=== PATIENT | female | born 1975 | race Caucasian/White ===

== ENCOUNTER 2017-09-08 11:26 | Emergency (ER) | payer OTHER, SELFPAY ==
[2017-09-08 11:27] VITALS: BP 152/106; PULSE 93; RESP 16; TEMP 36.6; O2SAT 98; BMI 32.1
--- NOTE | 2017-09-08 11:45 | ED.VISSUMM ---
- ER Visit Summary Date of Service: 09/08/17 Chief Complaint: Headache, sinus pressure, hypertension History of Present Illness: The patient is a 42 F who states she woke yesterday with head congestion and mild sore throat. 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 Patient does complain of headache behind her eyes into the left posterior parietal region. She has not taken anything for her symptoms and states she does not like medication. She has not noted a fever. She has not had cough or shortness of breath. Physical Examination: Vital signs are significant for blood pressure 152/106, otherwise unremarkable. Patient has not nasally, congested sound to her voice. She is in no acute distress. Head and neck examination reveals TMs to have mild hazy fluid behind the tympanic membranes. There is no significant erythema. She has mild posterior pharyngeal drainage. Heart is regular rate and rhythm. Lung sounds are clear. Abdomen is soft nontender. Neuro exam is normal. Test Results: [] Emergency Department Course and Treatment: Patient was treated with Naprosyn, Benadryl, and Afrin. On repeat evaluation her headache and congestion are significantly improved. Her pressure does remain elevated at 159/95. Patient no longer has headache. I did discuss with her that her neuro exam is completely normal and no further testing is required at this time. I did ask her to check her blood pressures daily and keep a log of her symptoms as well as her blood pressures. She is to take this with her when she follows with her primary care physician. Treatment Plan: [] Disposition: Discharge Impression: 1. Viral URI 2. Hypertension, to be confirmed This note was generated with [employer] dictation software. It may contain incorrect words, spelling, and punctuation that were not noted in review of the chart prior to signing ED Disposition - Plan for ED Patient: Chief Complaint: General Illness Referrals: Jitendra Ochoa MD [Primary Care Provider] -
[2017-09-08] MEDS: Naproxen 500 MG Tablet PO (11:50)
[2017-09-08] MEDS: Oxymetazoline 0.05% 1 SPRAY SPRAY.BTL 2 SPRAY NASAL (11:50)
[2017-09-08] MEDS: DiphenhydrAMINE 25 MG Capsule 50 MG PO (11:50)
[2017-09-08 11:57] VITALS: BP 180/112; PULSE 96; RESP 16
[2017-09-08 12:41] VITALS: BP 159/95; PULSE 73; RESP 16; O2SAT 96
--- NOTE | 2017-09-08 13:01 | ED.DEP ---
ED Disposition - Plan for ED Patient: Disposition: Home or Assisted Living Chief Complaint: General Illness Instructions: ED URI Viral, ED Hypertension Poss Referrals: Jitendra Ocoha MD [Primary Care Provider] - 1 Week
[2017-09-08 13:17] VITALS: BP 158/95; PULSE 71; RESP 16; O2SAT 100
== END 2017-09-08 13:18 | disposition home or self-care (01) ==
PROVIDERS: Emergency Provider Emergency Medicine; Family Provider Family Medicine; PCP Family Medicine
DX: J06.9 Acute upper respiratory infection, unspecified (principal); R03.0 Elevated blood-pressure reading, without diagnosis of hypertension
CPT/HCPCS: 99283

== ENCOUNTER → 2017-09-09 12:51 | Outpatient (CLI) | payer OTHER, SELFPAY ==
[2017-09-09 15:35] LABS: Hematocrit 43.5 % (37-47); Hemoglobin 14.3 g/dl (12.0-15.0); Mean Corp Hgb Conc 32.9 g/gl (32-36); Mean Corpuscular Hgb 30.4 pg (27.0-32.0); Mean Corpuscular Volume 92.4 fL (81-99); Mean Platelet Vol. 11.6 fl (6.2-12.0); Platelet Count 219 K/mm3 (150-450); RBC Distribution Width CV 13.6 % (11.6-14.6); Red Blood Count 4.71 M/mm3 (4.2-5.4); White Blood Count 8.3 K/mm3 (4.4-11.0)
[2017-09-09 15:46] LABS: Scan Indicated on CBC? Y/N NO
[2017-09-09 15:49] LABS: AST(SGOT) 17 U/L (15-37); Alanine Aminotransfer ALT/SGPT 20 U/L (13-56); Albumin, Serum 3.6 g/dL (3.2-5.0); Alkaline Phosphatase 85 U/L (45-117); Anion Gap 8 (5-15); BUN 9 mg/dL (7-18); BUN/Creat Ratio 12.9 RATIO (10-20); Calcium,Total 8.6 mg/dL (8.5-10.1); Chloride 107 mmol/L (98-107); EST Glomerular Filtration Rate 99 mL/min (>60); Est Glom Filt Rate - Afr Amer 119 mL/min (>60); Globulin 3.7 g/dL (2.2-4.2); Glucose 112 mg/dL (74-106); Potassium 3.6 mmol/L (3.5-5.1); Protein, Total 7.3 g/dL (6.4-8.2); Sodium Level 141 mmol/L (136-145); Thyroid Stim Hormone (TSH) 2.03 uIU/mL (0.358-3.74)
== END ==
PROVIDERS: Family Provider Family Medicine; PCP Family Medicine; Visit Provider Family Medicine
DX: I16.0 Hypertensive urgency (principal)
CPT/HCPCS: 36415; 80053; 83735; 84443; 85027

== ENCOUNTER → 2018-06-02 10:51 | Outpatient (CLI) | payer OTHER, SELFPAY ==
[2018-02-19 09:32] VITALS: BMI 30.2
[2018-06-02 12:29] LABS: Anion Gap 11 (5-15); BUN 13 mg/dL (7-18); BUN/Creat Ratio 26.1 RATIO (10-20); Calcium,Total 9.1 mg/dL (8.5-10.1); Chloride 104 mmol/L (98-107); EST Glomerular Filtration Rate 144 mL/min (>60); Est Glom Filt Rate - Afr Amer 175 mL/min (>60); Glucose 73 mg/dL (74-106); Potassium 4.2 mmol/L (3.5-5.1); Sodium Level 141 mmol/L (136-145)
== END ==
PROVIDERS: Family Provider Family Medicine; PCP Family Medicine; Visit Provider Family Medicine
DX: I10 Essential (primary) hypertension (principal)
CPT/HCPCS: 36415; 80048

== ENCOUNTER → 2018-06-05 17:00 | Outpatient (CLI) | payer OTHER, SELFPAY ==
--- NOTE | 2018-06-05 17:03 | BI_ITS ---
MAMMOGRAPHY - BILATERAL SCREENING REASON FOR EXAM: Female, 43 years old. Routine annual screening examination. PERTINENT HISTORY: Non-contributory. TECHNIQUE: Digital bilateral breast suzette (3D mammographic acquisition) in the CC and MLO projections. 2-D mediolateral oblique (MLO) and craniocaudad (CC) views of both breasts were obtained. CAD: Full Field Digital Mammography with Computer Added Detection was performed. COMPARISON: None. Baseline examination. FINDINGS: Breast Composition: There are scattered areas of fibroglandular density. There are no dominant masses or suspicious calcifications. There is a 7.7 mm x 5.6 mm well-defined nodule in the axillary region of the left breast. A similar appearing nodule is also seen in the axillary region of the right breast. This measures 9.5 mm. These most likely represent small lymph nodes. Correlation with ultrasound is recommended. No other significant abnormalities are identified. BI/SCREENING MAMM (CAD), BILAT IMPRESSION: Subcentimeter nodular density seen in the axillary regions of both breasts. These most likely represent small lymph nodes. Correlation with ultrasound is recommended. ASSESSMENT CATEGORY: BIRADS Category 0: Incomplete. Need additional imaging evaluation. A letter regarding these results will be sent to the patient by the facility within 30 days. Approximately 10% of breast cancers are not detected by mammography. A normal mammogram should not delay biopsy of a clinically suspicious abnormality. [id number] Electronically Signed: Fady Grimes MD at 8:29 EST Tel [phone], Service support ,
--- OUTSIDE RECORDS SUMMARY | 2018-07-22 19:08 | XMS RPT_ITS ---
:1975 Author Organization OHIP Support Name Relationship Address Phone ALCIDES CYDNEY Unavailable [address] + [place] [address] [facility] Unavailable [address] + [place] [address] ALCIDES, CYDNEY Unavailable [address] + [place] [address] [facility] Unavailable [address] + [place] [address] ALCIDES, CYDNEY Unavailable [address] + [place] [address] [facility] Unavailable [address] + [place] [address] ALCIDES, CYDNEY Unavailable [address] + [place] [address] [facility] Unavailable [address] + [place] [address] ALCIDES, CYDNEY Unavailable [address] + [place] [address] [facility] Unavailable [address] + [place] [address] ALCIDES, CYDNEY Unavailable [address] + [place] [address] [facility] Unavailable [address] + [place] [address] ALCIDES, CYDNEY Unavailable [address] + [place] [address] [facility] Unavailable [address] + [place] [address] ALCIDES, CYDNEY Unavailable [address] + [place] [address] [facility] Unavailable [address] + [place] [address] ALCIDES, CYDNEY Unavailable [address] + [place] [address] [facility] Unavailable [address] + [place] [address] ALCIDES, CYDNEY Unavailable [address] + [place] [address] [facility] Unavailable [address] + [place] [address] ALCIDES, CYDNEY Unavailable [address] + [place] [address] [facility] Unavailable [address] + [place] [address] Care Team Providers Name Role Phone Osorio Ochoa Attending Unavailable [facility] Unavailable Osorio Ochoa Attending Unavailable Don, [facility] Unavailable Hi, Charly Attending Unavailable Don, Osorio Referring Unavailable [place], Charly Attending Unavailable Hi, Charly Referring Unavailable [place] Unavailable [place]arly Attending Unavailable Hi, Charly Referring Unavailable [place], [facility] Unavailable Hi, Charly Consulting Unavailable [place]arly Attending Unavailable [place], Christopher Referring Unavailable [place], [facility] Unavailable Gabrielle Bingham Attending Unavailable Don, Osorio Attending Unavailable [place], Osorio Referring Unavailable [place], [facility] Unavailable [place], [facility] Unavailable Ungur, Jacquelin Attending Unavailable ASSESSMENT, HEALTH RISK Attending Unavailable ASSESSMENT, HEALTH RISK Referring Unavailable [facility], [facility] Unavailable Don, Osorio Attending Unavailable [place], [facility] Unavailable PROBLEMS PROBLEMS DATE TYPE CONDITION / CODE ATTENDING STATUS SOURCE 07/11/2018 Unknown R92.8 - Other Charly Do Active [facility] abnormal and Community inconclusive Hospital findings on Repository diagnostic imaging of breast / R92.8(ICD-10) 09/09/2017 Unknown I16.0 - Don, Active Bob Hypertensive [facility] urgency / Hospital I16.0(ICD-10) Repository 09/09/2017 Unknown 401.9 - Don, Active Bob Unspecified [facility] hypertension / Repository 401.9(ICD-9) 06/11/2018 Unknown R51 - Headache / Bingham, Gabrielle Active [facility] R51(ICD-10) [facility] Repository PROCEDURES PROCEDURES No Procedure Records FoundRESULTS RESULTS SURGERY VISIT REPORT Observed: 07/08/2018 Status: F Source: [place] 9:25 AM [facility] [place] [facility] 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 The 2:00 lesion came back as a fibroadenomatous change with mild ductal ectasia no evidence of malignancy. The 1:00 lesion came back as a fibroadenoma. The patient stated that she had mild to moderate amount of bruising. Has no discomfort at this time. Objective Details: Biopsy sites are clean there is no signs of infection. Assessment AND Plan Problems 1. 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 At that point in another 6 months she can get back to her routine mammograms. She can follow-up with me on an as needed. 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 Signature: Date (if applicable) CC: Osorio Ochoa MD OPERATIVE REPORT Observed: 06/23/2018 Status: F Source: BOB 11:21 AM [facility] [place] [facility] Medical Records Department [address] [place] [address] Operative Report 06/23/18 1117 MR#: [id number] Acct: [id number] Name: RADHA MCGRATH Rep #: [id number] : 1975 43 From: Charly Do MD PCP: Osorio Ochoa MD Status: REG CLI Y Location: US Problem List (1) Abnormal mammogram Status: Acute Report of Operation Date of Procedure: 06/19/18 Pre-Operative Diagnosis: Abnormal mammogram to left breast Post-Operative Diagnosis: Same Surgery/Procedure Performed:: Ultrasound-guided handheld mammotome breast biopsy of left breast x2 Type of Anesthesia:: Local Specimen's removed: Left breast biopsy x2 Estimated Blood Loss (mL): < 25 cc Description of Procedure: Patient was brought into the ultrasound unit. Ultrasound of the upper outer quadrant of the left breast revealed the lesion in question. I prepped the breast with chlorhexidine. I injected 1% lidocaine plain. Under ultrasound guidance I injected local posterior to the lesion. A skin lonnie was made. Under ultrasound guidance I directed the hand-held mammotome needle posterior to the lesion under ultrasound guidance numerous biopsies were obtained. Under ultrasound guidance a titanium clip was placed. Closer to the nipple area was the second lesion which was identified with ultrasound. I prepped the breast with chlorhexidine. I injected 1% lidocaine plain. I injected local posterior to the lesion under ultrasound guidance. A skin lonnie was made. Under ultrasound guidance I directed the hand-held mammotome needle posterior to the lesion. Under ultrasound guidance numerous biopsies were obtained. Under ultrasound guidance a small titanium clip was placed. Sterile dressings were applied. The patient tolerated the procedure well. - Admit VTE Documentation VTE Present on Admission: No VTE Mechan Device Prophylaxis: None VTE Pharm Prophylaxis ordered?: No Reason prophylaxis not ordered:: Treatment Not Indicated 06/23/18 1121 <Electronically signed by Charly Do MD> Date Charly Do MD CC: Osorio Ochoa MD; Charly Do MD Signed US BREAST BX EA ADD Observed: 06/19/2018 Status: F Source: BOB [place] 3:41 PM [facility] [place] [facility] Imaging Services [address] [place] [address] US Breast Bx EA Add Lesion MR#: [id number] Acct: [id number] Name: RADHA MCGRATH Rep #: [id number] : 1975 F 43 From: Fady Grimes MD PCP: Osorio Ochoa MD Status: REG CLI Study: US Breast Bx EA Add Lesion Date of Exam: 06/19/18 Exam# [id number] Ordering Dr: Charly Do MD STUDY: ULTRASOUND GUIDED BIOPSY OF THE BREAST LEFT REASON FOR EXAM: Female, 43 years old. Hypoechoic nodule at the 2:00 position of the left breast at 30 cm from the nipple. TECHNIQUE: Under direct sonographic guidance, the surgeon performed core needle biopsies of the hypoechoic nodule at the 2:00 position breast at 10 sinus and nipple. COMPARISON: Comparison is made with prior sonogram dated June 10, 2018 and prior mammogram dated June 05, 2018. FINDINGS: Successful ultrasound-guided core biopsy of the nodule at the 2:00 position breast at the sinus of the nipple. IMPRESSION: Successful ultrasound-guided core biopsy. Electronically Signed: Fady Grimes MD at 8:30 EST Tel [phone], Service support , ULTRASOUND GUIDED CORE BIOPSY REASON FOR EXAM: Female, 43 years old. Hypoechoic solid nodule at the 1:00 position of the breast at 3 cm nipple. PERTINENT HISTORY: Non-contributory. COMPARISON: None. TECHNIQUE: (All elements of maximal sterile barrier technique followed, including US elements as applicable) Upon arrival to the breast imaging department the patient's identification was confirmed and the LEFT breast was marked according to time-out protocol. Ultrasound guided core biopsy and clip placement, to include potential risks and complications, was explained in full to the patient. Written and verbal consent were obtained prior to initiation of the procedure. The LEFT breast was prepped and draped in standard sterile fashion and local anesthesia was obtained with 1% buffered lidocaine. A small dermatotomy was then made to introduce the core biopsy needle. Under ultrasound guidance multiple core samples were obtained with a 11 gauge needle and submitted in formalin for pathology. A titanium clip was then deployed into the biopsy cavity under ultrasound guidance. Upon completion of the procedure hemostasis was obtained and sterile dressing was applied. The patient tolerated the entire procedure without immediate complication and was discharged from the breast imaging department in good condition. US/US Breast Bx EA Add Lesion IMPRESSION: Ultrasound guided core biopsy of a mass in the LEFT breast at the 1:00 position breast at 3 cm from the nipple without complication. An addendum to this report will be rendered with appropriate recommendations when the pathology report is finalized. Electronically Signed: Fady Grimes MD at 8:31 EST Tel [phone], Service support , CC: Osorio Ochoa MD; Charly Do MD Nurse Ob: Signed US BREAST BIOPSY Observed: 06/19/2018 Status: F Source: BOB 1ST [place] 3:01 PM [facility] [place] [facility] Imaging Services [address] [place] [address] US Breast Biopsy 1st Lesion MR#: [id number] Acct: [id number] Name: RADHA MCGRATH Rep #: [id number] : 1975 F 43 From: Fady Grimes MD PCP: Osorio Ochoa MD Status: REG CLI Study: US Breast Biopsy 1st Lesion Date of Exam: 06/19/18 Exam# [id number] Ordering Dr: Charly Do MD STUDY: ULTRASOUND GUIDED BIOPSY OF THE BREAST LEFT REASON FOR EXAM: Female, 43 years old. Hypoechoic nodule at the 2:00 position of the left breast at 30 cm from the nipple. TECHNIQUE: Under direct sonographic guidance, the surgeon performed core needle biopsies of the hypoechoic nodule at the 2:00 position breast at 10 sinus and nipple. COMPARISON: Comparison is made with prior sonogram dated June 10, 2018 and prior mammogram dated June 05, 2018. FINDINGS: Successful ultrasound-guided core biopsy of the nodule at the 2:00 position breast at the sinus of the nipple. IMPRESSION: Successful ultrasound-guided core biopsy. Electronically Signed: Fady Grimes MD at 8:30 EST Tel [phone], Service support , ULTRASOUND GUIDED CORE BIOPSY REASON FOR EXAM: Female, 43 years old. Hypoechoic solid nodule at the 1:00 position of the breast at 3 cm nipple. PERTINENT HISTORY: Non-contributory. COMPARISON: None. TECHNIQUE: (All elements of maximal sterile barrier technique followed, including US elements as applicable) Upon arrival to the breast imaging department the patient's identification was confirmed and the LEFT breast was marked according to time-out protocol. Ultrasound guided core biopsy and clip placement, to include potential risks and complications, was explained in full to the patient. Written and verbal consent were obtained prior to initiation of the procedure. The LEFT breast was prepped and draped in standard sterile fashion and local anesthesia was obtained with 1% buffered lidocaine. A small dermatotomy was then made to introduce the core biopsy needle. Under ultrasound guidance multiple core samples were obtained with a 11 gauge needle and submitted in formalin for pathology. A titanium clip was then deployed into the biopsy cavity under ultrasound guidance. Upon completion of the procedure hemostasis was obtained and sterile dressing was applied. The patient tolerated the entire procedure without immediate complication and was discharged from the breast imaging department in good condition. US/US Breast Biopsy 1st Lesion IMPRESSION: Ultrasound guided core biopsy of a mass in the LEFT breast at the 1:00 position breast at 3 cm from the nipple without complication. An addendum to this report will be rendered with appropriate recommendations when the pathology report is finalized. Electronically Signed: Fady Grimes MD at 8:31 EST Tel [phone], Service support , CC: Osorio Ochoa MD; Charly Do MD Nurse Ob: Signed BREAST BIOPSY Observed: 06/19/2018 Status: F Source: BOB (CHOOSE SITE) 12:00 AM [facility] [place] Patient: RADHA MCGRATH : 1975 (43/F) Acct Num: [id number] Phys: Charly Do MD Unit Num: [id number] Loc: Specimen: [id number] Received: 06/20/18 - 1428 Spec Type: BREAST BX TISSUES 1 TISSUES: A. Left breast, NOS B. Left breast, NOS GROSS DESCRIPTION A - Received in fixative is one container labeled with the patient's name and designated left breast 2 o'clock. The specimen consists of multiple irregular fragments of yellow soft tissue that in aggregate measure 2.5 x 1.2 x 0.1 cm. The specimen is totally submitted in one cassette. B - Received in fixative is one container labeled with the patient's name and designated left breast 1 o'clock. The specimen consists of multiple irregular fragments of yellow soft tissue that in aggregate measure 2 x 1.5 x 0.1 cm. The specimen is totally submitted in one cassette. / AM:rhiannon 06/20/18 TC:5 CPT: 64482 x2 HEADER OPERATION: Left breast ultrasound-guided biopsy PRE-OP DIAGNOSIS: Left breast lesions 1 o'clock 2 cm, 2 o'clock 10 cm TISSUE SUBMITTED: A - Left breast nodule 2 o'clock, 10 cm from nipple, B - Left breast nodule 1 o'clock, 3 cm from nipple ISCHEMIC TIME: 1 minute MICROSCOPIC DESCRIPTION Slides are reviewed. MICROSCOPIC DIAGNOSIS A. Left breast at 2 o'clock, ultrasound-guided core biopsy: Fibroadenomatous change and mild duct ectasia. No evidence of malignancy. B. Left breast at 1 o'clock, ultrasound-guided core biopsy: Fibroadenoma. AM:rhiannon 06/23/18 Signed Rommel Young DO 06/23/18 <signature on file> Performed By: #### PBRBX #### [facility] [address] [place], [place], [address] SURGERY VISIT REPORT Observed: 06/16/2018 Status: F Source: [place] 3:02 PM [facility] [place] [facility] 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 Is patient in pain?: No Allergies No Known Allergies Allergy (Verified 06/16/18 07:30) Medications escitalopram 10 mg tablet 10 mg PO DAILY 06/16/18 [History Confirmed 06/16/18] lisinopril 20 mg-hydrochlorothiazide 12.5 mg tablet 1 tab PO DAILY 06/16/18 [History Confirmed 06/16/18] terbinafine HCl 250 mg tablet 250 mg PO DAILY 06/16/18 [History Confirmed 06/16/18] [facility] Medical History Hypertension (Chronic) Abnormal mammogram (Acute) Surgical History Hx of section (Acute) Family History Sister Hypertension Mother Hypertension Social History Smoking Status: Never smoker second hand exposure: No alcohol intake: never substance use type: does not use caffeine: Yes frequency: does not exercise HPI HPI HPI: RADHA MCGRATH, is a 43 F who presents to the office today for evaluation of an abnormal mammogram and ultrasound completed [facility] on 06/10/2018. Patient showed hypoechoic nodule with posterior acoustic shadowing seen at the 2 o'clock position of the breast 1 cm from the nipple. In addition there was another 5 mm hypoechoic nodule seen at the 1 o'clock position approximately 1 cm from the nipple area. Biopsy was recommended for both of these lesions. She has never had a biopsy before. She has no family history of breast cancer. ROS General General: No weight change, appetite, fatigue, colon cancer, breast cancer or weakness HEENT HEENT: No difficulty swallowing, eye injury, eye surgery, swollen glands or hoarseness Endo Endocrine: No thyroid disease, diabetes mellitus, thyroid cancer, Hair loss, heat intolerance or cold intolerance Skin Skin: No rash or changing moles Breast Breast: No nipple discharge Musc Musculoskeletal: No back problems, arthritis, rheumatoid arthritis, gout or joint pain Cardio Cardiovascular: No murmur, pacemaker, heart disease, atrial fibrillation, high blood pressure, heart attack, heart stent, palpitations, shortness of breat with exertion or chest pain Psych Psychiatric: No depression, anxiety or hearing voices Resp Respiratory: No shortness of breath, No sleep apnea, No cough, No COPD, No asthma, No emphysema, No wheezing Gastro Gastrointestinal: No abdominal pain, No nausea or vomiting, No diarrhea, No constipation, No blood in stool, No acid reflux, No hemorrhoids, No ulcers, No gallbladder problem, No black,tarry stools [place] Hematologic: No blood thinners, No blood disorders, No bleeding, No anemia, No blood clots Neuro Neurologic: No system reviewed and no additional complaints, except as docu, No as per HPI, No abnormal walking, No abnormal hearing, No abnormal movements, No abnormal speech, No behavioral changes, No burning sensations, No confusion, No seizure-like activity, No unsteadiness, No dizziness, No localized weakness, No frequent falls, No headache(s), No lack of coordination, No loss of vision, No memory loss, No numbness, No other visual disturbances, No radiating pain, No restless legs, No sensory deficit, No fainting, No tingling, No tremor(s), No weakness, No other Exam HENMT Head: normal to inspection, normocephalic, atraumatic Mouth: moist mucous membranes, oropharynx normal Eyes General: appearance normal, both eyes and all related structures Sclera: sclerae normal Neck Neck: no lymphadenopathy noted, trachea midline Neck mass: No Thyroid: thyroid normal Lymphatic: no lymphadenopathy noted Chest Breast inspection: normal inspection of the breasts Breast Palpation: Yes normal palpation of the breasts, No change in skin, No breast mass, No nipple discharge Other: Normal pendulous breasts bilaterally no palpable abnormalities or ident right. I ultrasound the areas but I just could not see these lesions with my machine. And we will have to do these biopsies in radiology per Resp Other: Respiratory Exam: Deferred Cardio Heart Sounds: no murmurs Other: Cardiac Exam: Deferred GI Other: GI Exam: Deferred Other: Rectal Exam: Deferred Extrem Other: Extremity Exam: Deferred Assessment AND Plan Problems 1. Abnormal mammogram R92.8 Plan I have discussed above with the patient. I have recommended ultrasound guided needle core breast biopsy with vacuum assistance. I have described the procedure to the patient. I have discussed with the patient that sometimes the ultrasound lesion may be artifact and is user dependent and therefore prior to undergoing the procedure, the patient will have a definitive US to ensure that the lesion is truly present and is not artifact. A marker clip will be placed to identify the location. Patient has been counseled to the risks/benefits of the procedure. I have explained the risks of the surgery, including but not limited to: infection, bleeding, injury to any blood vessels/nerves, scar tissue, missing the lesion, further surgery, etc. - the patient understands and agrees to proceed. I have answered all of the patient's questions to her satisfaction and she has no further questions. Coding Level of Care Code Off vis,new,level 3 Diagnoses Abnormal mammogram R92.8 06/16/18 1502 <Electronically signed by Charly Do MD> Date Charly Do MD Cosigner Signature: Date (if applicable) CC: Osorio Ochoa MD BREAST LIMITED Observed: 06/10/2018 Status: F Source: BOB UNILATERAL 8:54 AM [facility] [place] [facility] Imaging Services [address] [place], [place] [address] [address] Breast Limited Unilateral MR#: [id number] Acct: [id number] Name: RADHA MCGRATH Rep #: [id number] : 1975 F 43 From: Fady Grimes MD PCP: Osorio Ochoa MD Status: REG CLI Study: Breast Limited Unilateral Date of Exam: 06/10/18 Exam# [id number] Ordering Dr: Jitendra Ochoa MD ADDENDUM by Fady Grimes MD on 06/23/18 at 0835 ADDENDUM The report is correct. Electronically Signed: Fady Grimes MD at 8:35 EST Tel [phone], Service support , 06/23/18 0835 Date cc: Osorio Ochoa MD * Signed ADDENDUM by Fady Grimes MD on 06/23/18 at 0835 US/Breast Limited Unilateral 06/23/18 0849 Date cc: Osorio Ochoa MD * Signed STUDY: ULTRASOUND BREAST - RIGHT REASON FOR EXAM: Female, 43 years old. Abnormal screening mammogram. TECHNIQUE: Axial and longitudinal images of the RIGHT breast were performed with a high resolution ultrasound transducer. COMPARISON: Comparison is made with prior mammogram dated June 05, 2018. FINDINGS: RIGHT Breast: There is a 5 mm x 7 mm x 4 mm hypoechoic nodule with a central echogenic hilum at the 10:00 position of the breast at 12 cm from nipple. This most likely represents a small lymph node. IMPRESSION: Findings suggestive of a subcentimeter lymph node at the 10:00 position of the breast at 12 cm from nipple. ASSESSMENT CATEGORY: BIRADS Category 2: Benign. A letter regarding these results will be sent to the patient by the facility within 30 days. Electronically Signed: Fady Grimes MD at 10:24 EST Tel [phone], Service support , STUDY: ULTRASOUND BREAST - LEFT REASON FOR EXAM: Female, 43 years old. Abnormal screening mammogram. TECHNIQUE: Axial and longitudinal images of the LEFT breast were performed with a high resolution ultrasound transducer. COMPARISON: Comparison is made with prior mammogram dated June 05, 2018. FINDINGS: LEFT Breast: Is a 5 mm x 5 mm x 4 mm well-defined hypoechoic solid nodule at the 1:00 position the breast at 1 cm from the nipple. A biopsy recommended. There is also evidence of a 9 mm x 4 mm x 3 mm complex hypoechoic echoic and anechoic nodule at the 2:00 position of the breast at 1 cm from nipple. This measures 9 mm x 4 mm x 3 mm. Focal posterior acoustical shadowing is seen. A biopsy is recommended for further evaluation. There is also evidence of an 8 mm x 6 mm x 7 mm well-defined hypoechoic nodule at the 2:00 position of breast adipose centers nipple. This most likely represents a small lymph node. US/Breast Limited Unilateral IMPRESSION: Hypoechoic/anechoic nodule with posterior acoustical shadowing seen at the 2:00 position of the breast at 1 cm from nipple. A biopsy recommended. 5 mm x 5 mm x 4 mm hypoechoic solid nodule is also seen at the 1:00 position of the breast 1 cm from nipple. A biopsy is recommended. ASSESSMENT CATEGORY: BIRADS Category 4: Suspicious - Biopsy Should Be Considered. A letter regarding these results will be sent to the patient by the facility within 30 days. Electronically Signed: Fady Grimes MD at 10:27 EST Tel [phone], Service support , CC: Osorio Ochoa MD Nurse Ob: Signed SCREENING MAMM (CAD), Observed: 06/05/2018 Status: F Source: [place] B[place] 5:03 PM [facility] [place] [facility] Imaging Services [address] [place] [address] SCREENING MAMM (CAD), BILAT MR#: [id number] Acct: [id number] Name: RADHA MCGRATH Rep #: [id number] : 1975 F 43 From: Fady Grimes MD PCP: Osorio Ochoa MD Status: REG CLI Study: SCREENING MAMM (CAD), BILAT Date of Exam: 06/05/18 Exam# [id number] Ordering Dr: Jitendra Ochoa MD MAMMOGRAPHY - BILATERAL SCREENING REASON FOR EXAM: Female, 43 years old. Routine annual screening examination. PERTINENT HISTORY: Non-contributory. TECHNIQUE: Digital bilateral breast suzette (3D mammographic acquisition) in the CC and MLO projections. 2-D mediolateral oblique (MLO) and craniocaudad (CC) views of both breasts were obtained. CAD: Full Field Digital Mammography with Computer Added Detection was performed. COMPARISON: None. Baseline examination. FINDINGS: Breast Composition: There are scattered areas of fibroglandular density. There are no dominant masses or suspicious calcifications. There is a 7.7 mm x 5.6 mm well-defined nodule in the axillary region of the left breast. A similar appearing nodule is also seen in the axillary region of the right breast. This measures 9.5 mm. These most likely represent small lymph nodes. Correlation with ultrasound is recommended. No other significant abnormalities are identified. BI/SCREENING MAMM (CAD), BILAT IMPRESSION: Subcentimeter nodular density seen in the axillary regions of both breasts. These most likely represent small lymph nodes. Correlation with ultrasound is recommended. ASSESSMENT CATEGORY: BIRADS Category 0: Incomplete. Need additional imaging evaluation. A letter regarding these results will be sent to the patient by the facility within 30 days. Approximately 10% of breast cancers are not detected by mammography. A normal mammogram should not delay biopsy of a clinically suspicious abnormality. [id number] Electronically Signed: Fady Grimes MD at 8:29 EST Tel [phone], Service support , CC: Osorio Ochoa MD Nurse Ob: Signed BASIC METABOLIC Collected: 06/02/2018 Status: F Source: [place] PROFILE (BMP) 10:52 AM [facility] [place] TYPE CODE TESTS RESULT OUT OF RANGE REFERENCE UNITS LAB L501.0100 74-106 mg/dL Low GLU 73 Result Comment: Please note revised GLUCOSE reference range effective 2017. LAB L501.1000 7-18 mg/dL Normal BUN 13 LAB L501.1100 0.55-1.02 mg/dL Low CREAT,SERUM 0.50 Result Comment: The validity of the calculated GFR AND GFRAA in patients over 70 years has not been determined. Clinical correlation is essential. LAB L501.1110 >60 mL/min Normal EST GFR 144 Result Comment: Non- GFR Calc LAB L501.1115 >60 mL/min Normal EST GFR - AA 175 Result Comment: GFR Calc LAB L501.1300 10-20 RATIO High BUN/CRE 26.1 LAB L501.2200 8.5-10.1 mg/dL CA Normal 9.1 LAB L501.5300 136-145 mmol/L NA Normal 141 LAB L501.5600 3.5-5.1 mmol/L K Normal 4.2 LAB L501.5900 98-107 mmol/L CL Normal 104 LAB L501.6100 21.0-32.0 mmol/L Normal CO2 26.0 LAB L501.6200 5-15 Normal GAP 11 Performed By: #### L500.2500 #### [facility] [address] [place], [address] URINALYSIS, EMPLOYEE Collected: 03/18/2018 Status: F Source: [place] 6:21 AM [facility] [place] TYPE CODE TESTS RESULT OUT OF RANGE REFERENCE UNITS LAB L400.3000 Yellow COLOR Normal Yellow LAB L400.3050 Clear Normal CLARITY Clear LAB L400.3200 Normal mg/dl Normal GLUCOSE, UR Normal LAB L400.3300 Negative mg/dL Normal BILIRUBIN URINE Negative LAB L400.3400 Negative mg/dl Normal KETONE UR Negative LAB L400.3465 1.002-1.030 Normal SP.GR. DIPSTX 1.020 LAB L400.3550 5.0 - 8.0 pH UR Normal 5.0 LAB L400.3600 Negative mg/dl PROT Normal DIPSTX Negative LAB L400.3700 Normal mg/dl Normal UROBILI Normal LAB L400.3750 Negative Normal NITRITE UR Negative LAB L400.3780 Negative /ul High 50 OCCULT BLOOD-UR LAB L400.3800 Negative /ul LEUK Normal ESTERASE Negative Performed By: #### L400.0100 #### [facility] [address] [place], [address] CBC, EMPLOYEE Collected: 03/18/2018 Status: F Source: [place] 6:21 AM [facility] [place] TYPE CODE TESTS RESULT OUT OF RANGE REFERENCE UNITS LAB L100.1000 4.4-11.0 K/mm3 Normal WBC 8.5 LAB L100.1200 4.2-5.4 M/mm3 Low RBC 4.08 LAB L100.1300 12.0-15.0 g/dl Normal HGB 12.5 LAB L100.1400 37-47 % Normal HCT 37.9 LAB L100.1500 81-99 fL Normal MCV 92.9 LAB L100.1600 27.0-32.0 pg Normal MCH 30.6 LAB L100.1700 32-36 g/gl Normal MCHC 33.0 LAB L100.1810 11.6-14.6 % Normal RDW CV 13.3 LAB L100.1820 35.1-43.9 fl High RDW SD 44.1 LAB L100.1900 150-450 K/mm3 Normal PLT 253 LAB L100.2000 6.2-12.0 fl Normal MPV 11.1 LAB L100.2110 47-70 % Normal NEUT% 59.6 LAB L100.2210 19-41 % Normal LY% 30.2 LAB L100.2310 0-10 % Normal MONO% 7.8 LAB L100.2410 0-5 % Normal EO% 2.1 LAB L100.2510 0-1 % Normal BASO% 0.2 LAB L100.2620 2.0-7.7 X10 3/uL Normal Absolute Neut 5.0 LAB L100.2720 0.83-4.51 X10 3/ul Normal Absolute Lymph 2.56 Performed By: #### L100.0200 #### [facility] [address] [place], [address] EMPLOYEE PROFILE Collected: 03/18/2018 Status: F Source: [place] 6:21 AM [facility] [place] TYPE CODE TESTS RESULT OUT OF RANGE REFERENCE UNITS LAB L501.0100 74-106 mg/dL Normal GLU 93 Result Comment: Please note revised GLUCOSE reference range effective 2017. LAB L501.1000 7-18 mg/dL Normal BUN 9 LAB L501.1100 0.55-1.02 mg/dL Normal CREAT,SERUM 0.59 Result Comment: The validity of the calculated GFR AND GFRAA in patients over 70 years has not been determined. Clinical correlation is essential. LAB L501.1110 >60 mL/min Normal EST GFR 118 Result Comment: Non- GFR Calc LAB L501.1115 >60 mL/min Normal EST GFR - AA 143 Result Comment: GFR Calc LAB L501.1300 10-20 RATIO Normal BUN/CRE 15.2 LAB L501.1400 2.6-6.0 mg/dL Normal URIC 5.3 Result Comment: The drugs N-Acetylcysteine and Metamizole may falsely depress this assay. LAB L501.1500 6.4-8.2 g/dL Normal T PROT 6.7 LAB L501.1800 3.2-5.0 g/dL Normal ALB 3.3 LAB L501.1950 2.2-4.2 g/dL Normal GLOB 3.4 LAB L501.2000 0.9-2.4 RATIO Normal A/G 1.0 LAB L501.2200 8.5-10.1 mg/dL Normal CA 8.7 LAB L501.2300 2.5-4.9 mg/dL Normal PHOS 3.3 LAB L501.4100 15-37 U/L Low AST 12 LAB L501.4305 45-117 U/L Normal ALK P 74 LAB L501.4405 13-56 U/L Normal ALT 16 LAB L501.4600 0.20-1.00 mg/dL Normal T BILI 0.40 LAB L501.4700 0.00-0.30 mg/dL Normal D BILI 0.11 LAB L501.4900 200 mg/dL Normal CHOL 171 Result Comment: <200 mg/dL Desirable 200-240 mg/dL Borderline >240 mg/dL High Risk LAB L501.5000 mg/dL Normal TRIG 90 Result Comment: The drugs N-Acetylcysteine and Metamizole may falsely depress this assay. Serum Triglycerides Reference Interval Normal <150 mg/dL Borderline high 150 - 199 mg/dL High 200 - 499 mg/dL Very High > or = 500 mg/dL LAB L501.5300 136-145 mmol/L Normal NA 143 LAB L501.5600 3.5-5.1 mmol/L Normal K 3.9 LAB L501.5900 98-107 mmol/L High CL 108 LAB L501.6100 21.0-32.0 mmol/L Normal CO2 28.0 LAB L501.6200 5-15 Normal 7 GAP LAB L501.6400 mg/dL Low HDL 29 Result Comment: The drugs N-Acetylcysteine and Metamizole may falsely depress this assay. Reference Range HDL <40 mg/dL Low HDL Cholesterol HDL >or= 60 mg/dL High HDL Cholesterol LAB L501.6475 Normal CHOL:HDL 5.90 LAB L501.6500 0-130 mg/dL Normal LDL 124 LAB L501.6600 5-40 mg/dL Normal VLDL 18 LAB L504.2610 84-246 U/L Normal LDH 154 Performed By: #### L500.2900 #### [facility] [address] [facility] [facility] [facility] [place], [place], [address] NICOTINE URINE DRUG Collected: 03/18/2018 Status: F Source: [place] SCREEN 6:21 AM [facility] [place] TYPE CODE TESTS RESULT OUT OF RANGE REFERENCE UNITS LAB L505.6250 TO BE Normal CONFIRMED Result Comment: CONFIRMATORY TESTING FOR ALL POSITIVE URINE DRUG SCREEN RESULTS WILL ONLY BE SENT OUT UPON PHYSICIAN ORDER. The results of Urine Drug Screen methods provide only preliminary analytical test results. A more specific alternate chemical method must be used in order to obtain a confirmed analytical result. Gas chromatography/mass spectrometery (GC/MS) is the preferred confirmatory method. Clinical consideration and professional judgement should be applied to any drug of abuse test result, particularly when preliminary positive results are used. LAB L505.6270 <200 ng/mL High COT DRG Positive SCREEN Result Comment: Cotinine is the first-stage metabolite of Nicotine. Performed By: #### L505.6240 #### [facility] [address] [place], [address] DISCHARGE INSTRUCTION Observed: 02/19/2018 Status: F Source: [place] 9:56 AM [facility] REPOSIT[facility] Medical Records Department [address] [place] [address] Discharge Instruction 02/19/18 0955 MR#: [id number] Acct: [id number] Name: RADHA MCGRATH Rep #: [id number] : 1975 42 From: Jacquelin Miguel DO PCP: Osoiro Ochoa MD Status: PRE ER ED Disposition - Plan for ED Patient: Chief Complaint: Occup Expose Instructions: ED Wound Puncture General Referrals: Jitendra Ochoa MD [Primary Care Provider] - [facility] [GROUP OF PHYSICIANS] - 3-5 Days What to do if you have Problems For any increased pain, shortness of breath, bleeding, nausea or vomiting, chest pain, or any unexpected problems, contact your Primary Care Provider. Call [facility] ([phone]) or report to the closest Emergency Room. Call 911 if necessary. 02/19/18 0956 <Electronically signed by Jacquelin Miguel DO> Date Jacquelin Miguel DO Cosignbrad Signature (If Indicated): Date CC: Osorio Ocoha MD EMERGENCY DEPARTMENT Observed: 02/19/2018 Status: F Source: [place] SUMMARY 9:55 AM [facility] [place] [facility] Medical Records Department [address] [place] [address] Emergency Department Summary 02/19/18 0952 MR#: [id number] Acct: [id number] Name: RADHA MCGRATH Rep #: [id number] : 1975 42 From: Jacquelin Miguel DO PCP: Osorio Ochoa MD Status: PRE ER - ER Visit Summary Date of Service: 02/19/18 Chief Complaint: [Puncture wound right index finger] History of Present Illness: The patient is a 42 F [presents to the emergency department with a puncture wound that occurred approximately 9:30 AM to the right index finger. 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 Patient found a metallic springlike foreign body and presents to the emergency department for evaluation. Patient states she try to squeeze the finger but could not get any blood to come out and she washed the finger and cleaned it with alcohol. Patient is up-to-date on tetanus.] Physical Examination: [HEENT-PERRLA, EOMI. Cranial nerves II through XII grossly intact. TMs clear. Mucous membranes moist. No adenopathy. Cardiovascular-regular rate and rhythm without murmur or ectopy Lungs-clear to auscultation, chest wall stable without crepitus or subcu emphysema Abdomen-normoactive bowel sounds, soft, nontender, no rebound or rigidity, no peritoneal signs. Extremities-intact 4, normal range of motion, normal pulses, atraumatic]. Right index finger-I do not appreciate any breaks in the skin or puncture wounds noted. Test Results: [None indicated] Emergency Department Course and Treatment: [At this point I do not feel any testing is indicated nor do I feel there is any type of prophylaxis indicated. Patient did bring the metallic foreign body with her and it does appear to be some sort of a flimsy spring. At this point I do not see any obvious breaks in the skin although I suppose microscopic type perforation is a possibility. Given that this was a clean rag and sitting in direct solution I feel the risk of transmission of any type of infectious disease is extremely low. Patient does not want to pursue any further testing at this time.] Treatment Plan: [Follow-up with corporate care with the next 3-5 days] Disposition: [Discharged home in stable condition] Impression: [Puncture wound right index finger] This note was generated with [employer] dictation software. It may contain incorrect words, spelling, and punctuation that were not noted in review of the chart prior to signing ED Disposition - Plan for ED Patient: Chief Complaint: Occup Expose Referrals: Jitendra Ochoa MD [Primary Care Provider] - What to do if you have Problems For any increased pain, shortness of breath, bleeding, nausea or vomiting, chest pain, or any unexpected problems, contact your Primary Care Provider. Call [facility] ([phone]) or report to the closest Emergency Room. Call 911 if necessary. 02/19/18 0955 <Electronically signed by Jacquelin Miguel DO> Date Jacquelin Miguel DO Cosigner Signature (If Indicated): Date CC: Osorio Ochoa MD CBC-COMPLETE BLOOD CNT Collected: 09/09/2017 Status: F Source: [place] NO DIFF 12:58 PM [facility] [place] Order Comment: Order Date: 09/09/17 Order Info: [id number] - CBC TYPE CODE TESTS RESULT OUT OF RANGE REFERENCE UNITS LAB L100.1000 4.4-11.0 K/mm3 Normal WBC 8.3 LAB L100.1200 4.2-5.4 M/mm3 Normal RBC 4.71 LAB L100.1300 12.0-15.0 g/dl Normal HGB 14.3 LAB L100.1400 37-47 % Normal HCT 43.5 LAB L100.1500 81-99 fL Normal MCV 92.4 LAB L100.1600 27.0-32.0 pg Normal MCH 30.4 LAB L100.1700 32-36 g/gl Normal MCHC 32.9 LAB L100.1810 11.6-14.6 % Normal RDW CV 13.6 LAB L100.1820 35.1-43.9 fl High RDW SD 45.0 LAB L100.1900 150-450 K/mm3 Normal PLT 219 LAB L100.2000 6.2-12.0 fl Normal MPV 11.6 Performed By: #### L100.0500, L500.4050, L501.5200, L501.9520 #### [facility] [address] [place], [address] COMPREHENSIVE METABOLIC Collected: 09/09/2017 Status: F Source: [place] 12:58 PM [facility] [place] Order Comment: Order Date: 09/09/17 Order Info: [id number] - CMP Order Info: [id number] - MG Order Info: 3016-3 - TSH TYPE CODE TESTS RESULT OUT OF RANGE REFERENCE UNITS LAB L501.0100 74-106 mg/dL High GLU 112 Result Comment: Fasting Glucose result from 100 to 125 mg/dL suggests IMPAIRED HOMEOSTASIS per A.D.A. criteria. Please note revised GLUCOSE reference range effective 2017. LAB L501.1000 7-18 mg/dL Normal BUN 9 LAB L501.1100 0.55-1.02 mg/dL Normal CREAT,SERUM 0.70 Result Comment: The validity of the calculated GFR AND GFRAA in patients over 70 years has not been determined. Clinical correlation is essential. LAB L501.1110 >60 mL/min Normal EST GFR 99 Result Comment: Non- GFR Calc LAB L501.1115 >60 mL/min Normal EST GFR - AA 119 Result Comment: GFR Calc LAB L501.1300 10-20 RATIO Normal BUN/CRE 12.9 LAB L501.1500 6.4-8.2 g/dL T Normal PROT 7.3 LAB L501.1800 3.2-5.0 g/dL Normal ALB 3.6 LAB L501.1950 2.2-4.2 g/dL Normal GLOB 3.7 LAB L501.2000 0.9-2.4 RATIO Normal A/G 1.0 LAB L501.2200 8.5-10.1 mg/dL CA Normal 8.6 LAB L501.4100 15-37 U/L Normal AST 17 LAB L501.4305 45-117 U/L Normal ALK P 85 LAB L501.4405 13-56 U/L Normal ALT 20 Result Comment: Please note revised ALT reference range effective 2017. LAB L501.4600 0.20-1.00 mg/dL Normal T BILI 0.50 LAB L501.5300 136-145 mmol/L Normal NA 141 LAB L501.5600 3.5-5.1 mmol/L Normal K 3.6 LAB L501.5900 98-107 mmol/L Normal CL 107 LAB L501.6100 21.0-32.0 mmol/L Normal CO2 26.0 LAB L501.6200 5-15 Normal GAP 8 Performed By: #### L100.0500, L500.4050, L501.5200, L501.9520 #### [facility] [address] [place], [address] MAGNESIUM Collected: 09/09/2017 Status: F Source: [place] 12:58 PM [facility] [place] Order Comment: Order Date: 09/09/17 Order Info: [id number] - CMP Order Info: [id number] - MG Order Info: 3016-3 - TSH TYPE CODE TESTS RESULT OUT OF RANGE REFERENCE UNITS LAB L501.5200 1.6-2.6 mg/dL Normal MG 2.0 Result Comment: Please note revised Magnesium reference range effective 2017. Performed By: #### L100.0500, L500.4050, L501.5200, L501.9520 #### [facility] [facility] [place], [address] THYROID STIM HORMONE Collected: 09/09/2017 Status: F Source: BOB (TSH) 12:58 PM [facility] [place] Order Comment: Order Date: 09/09/17 Order Info: [id number] - CMP Order Info: [id number] - MG Order Info: 3016-3 - TSH TYPE CODE TESTS RESULT OUT OF RANGE REFERENCE UNITS LAB L501.9520 0.358-3.74 uIU/mL Normal TSH 2.03 Performed By: #### L100.0500, L500.4050, L501.5200, L501.9520 #### [facility] [address] [place], [address] EMERGENCY DEPARTMENT Observed: 09/08/2017 Status: F Source: B[place] SUMMARY 4:18 PM [facility] [place] [facility] Medical Records Department [address] [place] [address] Emergency Department Summary 09/08/17 1145 MR#: [id number] Acct: [id number] Name: RADHA MCGRATH Rep #: [id number] : 1975 42 From: Gabrielle Bingham MD PCP: Osorio Ochoa MD Status: DEP ER - ER Visit Summary Date of Service: 09/08/17 Chief Complaint: Headache, sinus pressure, hypertension History of Present Illness: The patient is a 42 F who states she woke yesterday with head congestion and mild sore throat. 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 Patient does complain of headache behind her eyes into the left posterior parietal region. She has not taken anything for her symptoms and states she does not like medication. She has not noted a fever. She has not had cough or shortness of breath. Physical Examination: Vital signs are significant for blood pressure 152/106, otherwise unremarkable. Patient has not nasally, congested sound to her voice. She is in no acute distress. Head and neck examination reveals TMs to have mild hazy fluid behind the tympanic membranes. There is no significant erythema. She has mild posterior pharyngeal drainage. Heart is regular rate and rhythm. Lung sounds are clear. Abdomen is soft nontender. Neuro exam is normal. Test Results: [] Emergency Department Course and Treatment: Patient was treated with Naprosyn, Benadryl, and Afrin. On repeat evaluation her headache and congestion are significantly improved. Her pressure does remain elevated at 159/95. Patient no longer has headache. I did discuss with her that her neuro exam is completely normal and no further testing is required at this time. I did ask her to check her blood pressures daily and keep a log of her symptoms as well as her blood pressures. She is to take this with her when she follows with her primary care physician. Treatment Plan: [] Disposition: Discharge Impression: 1. Viral URI 2. Hypertension, to be confirmed This note was generated with [employer] software. It may contain incorrect words, spelling, and punctuation that were not noted in review of the chart prior to signing ED Disposition - Plan for ED Patient: Chief Complaint: General Illness Referrals: Jitendra Ochoa MD [Primary Care Provider] - What to do if you have Problems For any increased pain, shortness of breath, bleeding, nausea or vomiting, chest pain, or any unexpected problems, contact your Primary Care Provider. Call [employer] [facility] ([phone]) or report to the closest Emergency Room. Call 911 if necessary. 09/08/17 1618 <Electronically signed by Gabrielle Bingham MD> Date Gabrielle Bingham MD Cosigner Signature (If Indicated): Date CC: Osorio Ochoa MD DISCHARGE INSTRUCTION Observed: 09/08/2017 Status: F Source: BOB 1:02 PM [facility] [place] [facility] Medical Records Department [address] [place] [address] Discharge Instruction 09/08/17 1301 MR#: [id number] Acct: [id number] Name: RADHA MCGRATH Peyton Rep #: [id number] : 1975 42 From: Gabrielle Bingham MD PCP: Osorio Ochoa MD Status: REG ER ED Disposition - Plan for ED Patient: Disposition: Home or Assisted Living Chief Complaint: General Illness Instructions: ED URI Viral, ED Hypertension Poss Referrals: Jitendra Ochoa MD [Primary Care Provider] - 1 Week What to do if you have Problems For any increased pain, shortness of breath, bleeding, nausea or vomiting, chest pain, or any unexpected problems, contact your Primary Care Provider. Call [facility] ([phone]) or report to the closest Emergency Room. Call 911 if necessary. 09/08/17 1302 <Electronically signed by Gabrielle Bingham MD> Date Gabrielle Dukes Signature (If Indicated): Date CC: Osorio Ochoa MD ALLERGIES ALLERGIES DATE TYPE / CODE NAME / CODE REACTION SEVERITY SOURCE 07/08/2018 Drug No Known Unknown [facility] Allergy/4160 Allergies/F00 Hospital 73589(SNOMED [id number](RXNOR Repository CT) M) ENCOUNTERS ENCOUNTERS ADMIT/DISCHARGE ACCOUNT ADMITTING ENCOUNTER LOCATION SOURCE NUMBER CLASS 07/08/2018/ [id number] Ambulatory BMSBuilding:B [facility] 9 2 [facility] Repository 06/23/2018 [id number] Ambulatory BMSBuilding:B Bob 7 [facility] Repository 06/19/2018 [id number] Ambulatory [facility] Bob [address] [facility] ing:US Repository 06/16/2018/ [id number] Ambulatory BMSBuilding:B [facility] 8 2 [facility] Repository 06/10/2018 [id number] Ambulatory [facility] [address] [facility] ing:OPUS Repository 06/05/2018 [id number] Ambulatory [facility] [address] [facility] ing:OPBI Repository 06/02/2018 [id number] Ambulatory [facility] [address] [facility] ing:MFPLAB Repository 03/18/2018 [id number] Ambulatory [facility] Bob [address] [facility] ing:EMPH Repository 02/19/2018 [id number] Ambulatory [facility] [address] [facility] ing:ED Repository 09/09/2017 [id number] Ambulatory Bob [facility] [address] [facility] ing:MTLAB Repository 09/08/2017/ [id number] Emergency Bob Bob [address] [facility] ing:ED Repository PAYERS PAYERS ENCOUNTER GUARANTOR PAYER SUBSCRIBER SOURCE 07/08/2018 RADHA [id number] Primary Insurance:[facility] RADHA Todd RETTIGDOB: Bob E [employer] [facility] [id number] [address]Efk: [phone]) Number: Repository [phone] HP) [id number] Date:6913-11-16[address], [place] [address]SE: CHECK WEBSITE 07/08/2018 Secondary NOT GIVENUNK Bob Insurance:SELF PAY [facility] Number: Effective Repository Date:2018-06-20 06/23/2018 RADHA Todd RETTIG218 Primary NOT GIVENUNK Bob E [employer] Insurance:SELF PAY [facility] [address]Rkw: (803) Number: Effective Repository [phone] () Date:2018-06-23 06/19/2018 RADHA Todd RETTIG218 Primary Insurance:[facility] RADHA Todd RETTIGDOB: Bob E [employer] [facility] [id number] [facility] Health Center [address]Hxp: [phone]) Number: Repository [phone] () [id number] Date:0675-09-96[address], [place] [address]MZ: CHECK WEBSITE 06/19/2018 Secondary NOT GIVENUNK Bob Insurance:SELF PAY [facility] Number: Effective Repository Date:2018-06-16 06/16/2018 RADHA Todd RETTIG218 Primary Insurance:[facility] RADHA Todd RETTIGDOB: Bob E [employer] [id number] [address]Ykm: (803) Number: Repository [phone] () [id number] Date:3785-04-75[address] [address], [place] [address]FN: CHECK WEBSITE 06/16/2018 Secondary NOT GIVENUNK [facility] Insurance:SELF PAY [facility] Number: Effective Repository Date:2018-06-13 06/10/2018 REYES Primary Insurance:[facility] RADHA Todd RETTIGDOB: [facility] [id number] [id number], [place] Number: Repository [phone]: 330 [id number] [phone] () Date:1024-57-84QC [address] [address]Q, [place] [address]ZC: CHECK WEBSITE 06/10/2018 Secondary NOT GIVENUNK [facility] Insurance:SELF PAY [facility] Number: Effective Repository Date:2018-06-06 06/05/2018 REYES Primary Insurance:[facility] RADHA J RETTIGDOB: [facility] [id number] [id number], [place] Number: Repository [phone]: 330 [id number] [phone] () Date:8327-62-73BD [address] [address]LLQKTZTF, [place] [address]XB: CHECK WEBSITE 06/05/2018 Secondary NOT GIVENUNK Bob Insurance:SELF PAY [facility] Number: Effective Repository Date:2018-04-22 06/02/2018 Reyes Primary Insurance:[facility] RADHA Todd RETTIGDOB: [facility] [id number] [id number], [place] Number: Repository [id number]: 330 [id number] [phone] () Date:6641-26-97DZ [address] [address]QRSJ[place]H, [place] [address]IY: CHECK WEBSITE 06/02/2018 Secondary NOT GIVENUNK [facility] Insurance:SELF PAY [facility] Number: Effective Repository Date:2018-06-02 03/18/2018 Reyes Primary NOT GIVENUNK Bob [id number] Insurance:SELF PAY [place], [place] Number: Effective Repository [phone]: ([phone]) Date:2018-03-18 [phone] () 02/19/2018 Reyes Primary NOT GIVENUNK Bob [id number] Insurance:SELF PAY [place], [place] Number: Effective Repository [phone]: ([phone]) Date:2018-02-19 [phone] () 09/09/2017 Reyes Primary Insurance:[facility] RADHA Todd RETTIGDOB: [place] [id number] [id number], [place] Number: Repository [phone]: 330 [id number] [phone] () Date:5215-48-78WS [address] [address]RZCPLWDMS, [place] [address]CM: CHECK WEBSITE 09/09/2017 Secondary NOT GIVENUNK [facility] Insurance:SELF PAY [facility] Number: Effective Repository Date:2017-09-09 09/08/2017 RADHA Todd [id number] Primary Insurance:[facility] RADHA Todd RETTIGDOB: Bob [address] [facility] [id number] [facility] [address]Grh: ([phone]) Number: Repository [phone] HP) [id number] Date:1014-69-18SN [address] [address]YPBNXZRQV, [place] [address]UH: CHECK WEBSITE 09/08/2017 Secondary NOT GIVENUNK Bob Insurance:SELF PAY [facility] Number: Effective Repository Date:2017-09-08
== END ==
PROVIDERS: Family Provider Family Medicine; PCP Family Medicine; Visit Provider Family Medicine
DX: Z12.31 Encounter for screening mammogram for malignant neoplasm of breast (principal)
CPT/HCPCS: 77063; 77067

== ENCOUNTER → 2018-06-10 08:47 | Outpatient (CLI) | payer OTHER, SELFPAY ==
--- NOTE | 2018-06-10 08:52 | US_ITS ---
STUDY: ULTRASOUND BREAST - RIGHT REASON FOR EXAM: Female, 43 years old. Abnormal screening mammogram. TECHNIQUE: Axial and longitudinal images of the RIGHT breast were performed with a high resolution ultrasound transducer. COMPARISON: Comparison is made with prior mammogram dated June 05, 2018. FINDINGS: RIGHT Breast: There is a 5 mm x 7 mm x 4 mm hypoechoic nodule with a central echogenic hilum at the 10:00 position of the breast at 12 cm from nipple. This most likely represents a small lymph node. IMPRESSION: Findings suggestive of a subcentimeter lymph node at the 10:00 position of the breast at 12 cm from nipple. ASSESSMENT CATEGORY: BIRADS Category 2: Benign. A letter regarding these results will be sent to the patient by the facility within 30 days. Electronically Signed: Fady Grimes MD at 10:24 EST Tel [phone], Service support , STUDY: ULTRASOUND BREAST - LEFT REASON FOR EXAM: Female, 43 years old. Abnormal screening mammogram. TECHNIQUE: Axial and longitudinal images of the LEFT breast were performed with a high resolution ultrasound transducer. COMPARISON: Comparison is made with prior mammogram dated June 05, 2018. FINDINGS: LEFT Breast: Is a 5 mm x 5 mm x 4 mm well-defined hypoechoic solid nodule at the 1:00 position the breast at 1 cm from the nipple. A biopsy recommended. There is also evidence of a 9 mm x 4 mm x 3 mm complex hypoechoic echoic and anechoic nodule at the 2:00 position of the breast at 1 cm from nipple. This measures 9 mm x 4 mm x 3 mm. Focal posterior acoustical shadowing is seen. A biopsy is recommended for further evaluation. There is also evidence of an 8 mm x 6 mm x 7 mm well-defined hypoechoic nodule at the 2:00 position of breast adipose centers nipple. This most likely represents a small lymph node. US/Breast Limited Unilateral IMPRESSION: Hypoechoic/anechoic nodule with posterior acoustical shadowing seen at the 2:00 position of the breast at 1 cm from nipple. A biopsy recommended. 5 mm x 5 mm x 4 mm hypoechoic solid nodule is also seen at the 1:00 position of the breast 1 cm from nipple. A biopsy is recommended. ASSESSMENT CATEGORY: BIRADS Category 4: Suspicious - Biopsy Should Be Considered. A letter regarding these results will be sent to the patient by the facility within 30 days. Electronically Signed: Fady Grimes MD at 10:27 EST Tel [phone], Service support ,
--- OUTSIDE RECORDS SUMMARY | 2018-09-11 14:39 | XMS RPT_ITS ---
:1975 Author Organization OHIP Support Name Relationship Address Phone ALCIDES CYDNEY Unavailable [address] + [place] [address] [facility] Unavailable [address] + [place] [address] ALCIDES, CYDNEY Unavailable [address] + [place] [address] [facility] Unavailable [address] + [place] [address] ALCIDES, CYDNEY Unavailable [address] + [place] [address] [facility] Unavailable [address] + [place] [address] ALCIDES, CYDNEY Unavailable [address] + [place] [address] [facility] Unavailable [address] + [place] [address] ALCIDES, CYDNEY Unavailable [address] + [place] [address] [facility] Unavailable [address] + [place] [address] ALCIDES, CYDNEY Unavailable [address] + [place] [address] [facility] Unavailable [address] + [place] [address] ALCIDES, CYDNEY Unavailable [address] + [place] [address] [facility] Unavailable [address] + [place] [address] ALCIDES, CYDNEY Unavailable [address] + [place] [address] [facility] Unavailable [address] + [place] [address] ALCIDES, CYDNEY Unavailable [address] + [place] [address] [facility] Unavailable [address] + [place] [address] ALCIDES, CYDNEY Unavailable [address] + [place] [address] [facility] Unavailable [address] + [place] [address] ALCIDES, CYDNEY Unavailable [address] + [place] [address] [facility] Unavailable [address] + [place] [address] Care Team Providers Name Role Phone Osorio Ochoa Attending Unavailable Don, [facility] [place] Primary Care Unavailable Osorio Ochoa Attending Unavailable Don, [place] [facility] Unavailable Hi, Charly Attending Unavailable Don, Osorio Referring Unavailable Green, Charly Attending Unavailable Hi, Charly Referring Unavailable Ranney, [facility] [place] Primary Care Unavailable GreenCharly Attending Unavailable Hi, Charly Referring Unavailable Ran[place], [place] Primary Care Unavailable Hi, Charly Consulting Unavailable GreenCharly Attending Unavailable Ranney, Christopher Referring Unavailable Ranney, [facility] [place] Primary Care Unavailable Gabrielle Bingham Attending Unavailable Don, Osorio Attending Unavailable Ranney, Osorio Referring Unavailable Ran[place], [place] Primary Care Unavailable [place], [place] [facility] Unavailable Ungur, Jacquelin Attending Unavailable ASSESSMENT, HEALTH RISK Attending Unavailable ASSESSMENT, HEALTH RISK Referring Unavailable [facility], [place] Primary Care Unavailable Don, Osorio Attending Unavailable [place], [place] [facility] Unavailable PROBLEMS PROBLEMS DATE TYPE CONDITION / CODE ATTENDING STATUS SOURCE 07/11/2018 Unknown R92.8 - Other Charly Do Active Bob abnormal and Community inconclusive Hospital findings on Repository diagnostic imaging of breast / R92.8(ICD-10) 09/09/2017 Unknown I16.0 - Don, Active Bob Hypertensive [facility] urgency / Hospital I16.0(ICD-10) Repository 09/09/2017 Unknown 401.9 - Don, Active Bob Unspecified [facility] Hospital hypertension / Repository 401.9(ICD-9) 06/11/2018 Unknown R51 - Headache / Bingham, Gabrielle Active [place] R51(ICD-10) [facility] Repository PROCEDURES PROCEDURES No Procedure Records FoundRESULTS RESULTS SURGERY VISIT REPORT Observed: 07/08/2018 Status: F Source: BOB 9:25 AM [facility] REPOSITORY [facility] [address] [place] [address] OFFICE VISIT Date of Service: 07/08/18 MR#: [id number] Acct: [id number] Name: RADHA MCGRATH Rep #: [id number] : 1975 Provider: Charly Do MD Age/Sex: 43/F Location: [facility] Status: Signed Intake Intake Visit Reasons: 2 WK F/U Breast BX 06/19 Senior It Specialist Required: No Is patient in pain?: No [...] <Electronically signed by Charly Do MD> Date Charyl Do MD [facility] Signature: Date (if applicable) CC: Osorio Ochoa MD OPERATIVE REPORT Observed: 06/23/2018 Status: F Source: BOB 11:21 AM [facility] REPOSITORY [facility] Medical Records Department [address] [place] [address] Operative Report 06/23/18 1117 MR#: [id number] Acct: [id number] Name: RADHA MCGRATH Rep #: [id number] : 1975 43 From: Charly Do MD [...] Status: F Source: BOB LESION 3:41 PM [facility] REPOSITORY [facility] Imaging Services [address] [place] [address] US Breast Bx EA Add Lesion MR#: [id number] Acct: [id number] Name: RADHA MCGRATH Rep #: [id number] : 1975 F 43 From: Fady Grimes MD PCP: Osorio Ochoa MD Status: REG CLI Study: US Breast Bx EA Add Lesion Date of Exam: 06/19/18 Exam# [id number] Ordering Dr: Charly Do MD STUDY: ULTRASOUND [...] Fady Grimes MD at 8:30 EST Tel [phone], Service support , ULTRASOUND GUIDED CORE BIOPSY [...] Fady Grimes MD at 8:31 EST Tel [phone], Service support , CC: Osorio Ochoa MD; Charly Do MD Filling Hauler: Signed US BREAST BIOPSY Observed: 06/19/2018 Status: F Source: BOB 1ST LESION 3:01 PM [facility] REPOSITORY [facility] Imaging Services [address] [place] [address] US Breast Biopsy 1st Lesion MR#: [id number] Acct: [id number] Name: RADHA MCGRATH Rep #: [id number] : 1975 F 43 From: Fady Grimes MD PCP: Osorio Ochoa MD Status: REG CLI Study: US Breast Biopsy 1st Lesion Date of Exam: 06/19/18 Exam# [id number] Ordering Dr: Charly Do MD STUDY: ULTRASOUND [...] Fady Grimes MD at 8:30 EST Tel [phone], Service support , ULTRASOUND GUIDED CORE BIOPSY [...] Fady Grimes MD at 8:31 EST Tel [phone], Service support , CC: Osorio Ochoa MD; Charyl Do MD Filling Hauler: Signed BREAST BIOPSY Observed: 06/19/2018 Status: F Source: BOB (CHOOSE SITE) 12:00 AM [facility] REPOSITORY Patient: RADHA MCGRATH : 1975 (43/F) Acct Num: [id number] Phys: Charly Do MD Unit Num: [id number] Loc: Specimen: [id number] Received: 06/20/18 - 1428 Spec Type: BREAST [...] one cassette. / AM:rhiannon 06/20/18 TC:5 CPT: 42506 x2 HEADER OPERATION: Left breast ultrasound-guided biopsy [...] on file> Performed By: #### PBRBX #### [facility] [address] [place], [place], [address] SURGERY VISIT REPORT Observed: 06/16/2018 Status: F Source: RIVERT[place] 3:02 PM [facility] REPOSITORY [facility] [address] [place] [address] OFFICE VISIT Date of Service: 06/16/18 MR#: [id number] Acct: [id number] Name: RADHA MCGRATH Rep #: [id number] : 1975 Provider: Charly Do MD Age/Sex: 43/F Location: [facility] Status: Signed Intake Vital Signs06/16/18 Height 4 ft 11 in 06/16/18 Weight: 150 lb Intake Visit Reasons: R Breast Birads 2 U/S AND Mammo 06/10 Senior It Specialist Required: No Is patient in pain?: No Allergies No Known Allergies Allergy (Verified 06/16/18 07:30) Medications escitalopram 10 mg tablet 10 mg PO DAILY 06/16/18 [History Confirmed 06/16/18] lisinopril 20 mg-hydrochlorothiazide 12.5 mg tablet 1 tab PO DAILY 06/16/18 [History Confirmed 06/16/18] terbinafine HCl 250 mg tablet 250 mg PO DAILY 06/16/18 [History Confirmed 06/16/18] [facility] Medical History Hypertension (Chronic) Abnormal mammogram (Acute) [...] of an abnormal mammogram and ultrasound completed [facility] on 06/10/2018. Patient showed hypoechoic nodule with [...] Status: F Source: BOB UNILATERAL 8:54 AM [facility] REPOSITORY [facility] Imaging Services [address] [place], [place] [address] [address] Breast Limited Unilateral MR#: [id number] Acct: [id number] Name: RADHA MCGRATH Rep #: [id number] : 1975 F 43 From: Fady Grimes MD PCP: Osorio Ochoa MD Status: REG CLI Study: Breast Limited Unilateral Date of Exam: 06/10/18 Exam# [id number] Ordering Dr: Jitendra Ochoa MD ADDENDUM by Fady Grimes MD on 06/23/18 at 0835 ADDENDUM The report is correct. Electronically Signed: Fady Grimes MD at 8:35 EST Tel [phone], Service support , 06/23/18 0835 Date cc: [...] Fady Grimes MD at 10:24 EST Tel [phone], Service support , STUDY: ULTRASOUND BREAST - [...] Fady Grimes MD at 10:27 EST Tel [phone], Service support , CC: Osorio Ochoa MD Filling Hauler: Signed SCREENING MAMM (CAD), Observed: 06/05/2018 Status: F Source: BOB BILAT 5:03 PM [facility] REPOSITORY [facility] Imaging Services [address] [place] [address] SCREENING MAMM (CAD), BILAT MR#: [id number] Acct: [id number] Name: RADHA MCGRATH Rep #: [id number] : 1975 F 43 From: Fady Grimes MD PCP: Osorio Ochoa MD Status: REG CLI Study: SCREENING MAMM (CAD), BILAT Date of Exam: 06/05/18 Exam# [id number] Ordering Dr: Jitendra Ochoa MD MAMMOGRAPHY - [...] delay biopsy of a clinically suspicious abnormality. [id number] Electronically Signed: Fady Grimes MD at 8:29 EST Tel [phone], Service support , CC: Osorio Ochoa MD Filling Hauler: Signed BASIC METABOLIC Collected: 06/02/2018 Status: F Source: BOB PROFILE (BMP) 10:52 AM [facility] REPOSITORY TYPE CODE TESTS RESULT OUT OF [...] GAP 11 Performed By: #### L500.2500 #### [facility] [address] [place], [address] URINALYSIS, EMPLOYEE Collected: 03/18/2018 Status: F Source: BOB 6:21 AM [facility] REPOSITORY TYPE CODE TESTS RESULT OUT OF [...] ESTERASE Negative Performed By: #### L400.0100 #### [facility] [address] [place], [address] CBC, EMPLOYEE Collected: 03/18/2018 Status: F Source: [place] 6:21 AM [facility] REPOSITORY TYPE CODE TESTS RESULT OUT OF [...] Lymph 2.56 Performed By: #### L100.0200 #### [facility] [address] [place], [address] EMPLOYEE PROFILE Collected: 03/18/2018 Status: F Source: BOB 6:21 AM [facility] REPOSITORY TYPE CODE TESTS RESULT OUT OF [...] LDH 154 Performed By: #### L500.2900 #### [facility] [address] [facility] [place], [place], [address] NICOTINE URINE DRUG Collected: 03/18/2018 Status: F Source: BOB SCREEN 6:21 AM [facility] REPOSITORY TYPE CODE TESTS RESULT OUT OF [...] of Nicotine. Performed By: #### L505.6240 #### [facility] [address] [facility] [place], [address] DISCHARGE INSTRUCTION Observed: 02/19/2018 Status: F Source: [place] 9:56 AM [facility] REPOSITORY [facility] Medical Records Department [address] [place] [address] Discharge Instruction 02/19/18 0955 MR#: [id number] Acct: [id number] Name: RADHA MCGRATH Rep #: [id number] : 1975 42 From: Jacquelin Miguel DO PCP: Osorio Ochoa MD Status: PRE ER ED Disposition [...] your Primary Care Provider. Call [facility] ([phone]) or report to the closest Emergency Room. Call 911 if necessary. 02/19/18 0956 <Electronically signed by Jacquelin Miguel DO> Date Jacquelin Miguel DO Cosignbrad Signature (If Indicated): Date CC: Osorio Ochoa MD EMERGENCY DEPARTMENT Observed: 02/19/2018 Status: F Source: BOB SUMMARY 9:55 AM [facility] REPOSITORY [facility] Medical Records Department [address] [place] [address] Emergency Department Summary 02/19/18 0952 MR#: [id number] Acct: [id number] Name: RADHA MCGRATH Rep #: [id number] : 1975 42 From: Jacquelin Miguel DO PCP: Osorio Ochoa MD Status: PRE ER - ER Visit Summary Date of Service: 02/19/18 Chief Complaint: [Puncture wound right index finger] History of Present Illness: The patient is a 42 F [presents to the emergency department with a puncture wound that occurred approximately 9:30 AM to the right index finger. 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 It may contain incorrect words, [...] your Primary Care Provider. Call [facility] ([phone]) or report to the closest Emergency Room. Call 911 if necessary. 02/19/18 0955 <Electronically signed by Jacquelin Miguel DO> Date Jacquelin Miguel DO Cosigner Signature (If Indicated): Date CC: Osorio Ochoa MD CBC-COMPLETE BLOOD CNT Collected: 09/09/2017 Status: F Source: BOB NO DIFF 12:58 PM [facility] REPOSITORY Order Comment: Order Date: 09/09/17 Order Info: 11416-7 - CBC TYPE CODE TESTS RESULT OUT [...] By: #### L100.0500, L500.4050, L501.5200, L501.9520 #### [facility] [address] [place], [address] COMPREHENSIVE METABOLIC Collected: 09/09/2017 Status: F Source: [place]OB [place] 12:58 PM [facility] REPOSITORY Order Comment: Order Date: 09/09/17 Order Info: 0786-1 - CMP Order Info: 09403-2 - MG Order Info: 3016-3 - TSH [...] By: #### L100.0500, L500.4050, L501.5200, L501.9520 #### [facility] [address] [place], [address] MAGNESIUM Collected: 09/09/2017 Status: F Source: BOB 12:58 PM [facility] REPOSITORY Order Comment: Order Date: 09/09/17 Order Info: 0786-1 - CMP Order Info: 03331-8 - MG Order Info: 3016-3 - TSH TYPE CODE TESTS RESULT OUT OF RANGE REFERENCE UNITS LAB L501.5200 1.6-2.6 mg/dL Normal MG 2.0 Result Comment: Please note revised Magnesium reference range effective 2017. Performed By: #### L100.0500, L500.4050, L501.5200, L501.9520 #### [facility] [facility] [place], [address] THYROID STIM HORMONE Collected: 09/09/2017 Status: F Source: BOB (TSH) 12:58 PM [facility] REPOSITORY Order Comment: Order Date: 09/09/17 Order Info: 0786-1 - CMP Order Info: 01406-5 - MG Order Info: 3016-3 - TSH TYPE CODE TESTS RESULT OUT OF RANGE REFERENCE UNITS LAB L501.9520 0.358-3.74 uIU/mL Normal TSH 2.03 Performed By: #### L100.0500, L500.4050, L501.5200, L501.9520 #### [facility] [address] [place], [address] EMERGENCY DEPARTMENT Observed: 09/08/2017 Status: F Source: BOB SUMMARY 4:18 PM [facility] REPOSITORY [facility] Medical Records Department [address] [place] [address] Emergency Department Summary 09/08/17 1145 MR#: [id number] Acct: [id number] Name: RADHA MCGRATH Rep #: [id number] : 1975 42 From: Gabrielle Bingham MD [...] be confirmed This note was generated with LikeAndyation software. It may contain incorrect words, spelling, [...] problems, contact your Primary Care Provider. Call [facility] ([phone]) or report to the closest Emergency Room. Call 911 if necessary. 09/08/17 1618 <Electronically signed by Gabrielle Bingham MD> Date Gabrielle Bingham MD Cosigner Signature (If Indicated): Date CC: Osorio Ochoa MD DISCHARGE INSTRUCTION Observed: 09/08/2017 Status: F Source: BOB 1:02 PM [facility] REPOSITORY [facility] Medical Records Department [address] [place] [address] Discharge Instruction 09/08/17 1301 MR#: [id number] Acct: [id number] Name: RADHA MCGRATH [place] Rep #: [id number] : 1975 42 From: Gabrielle Bingham MD [...] your Primary Care Provider. Call [facility] ([phone]) or report to the closest Emergency Room. Call 911 if necessary. 09/08/17 1302 <Electronically signed by Gabrielle Bingham MD> Date Gabrielle Dukes Signature (If Indicated): Date CC: Osorio Ochoa MD ALLERGIES ALLERGIES DATE TYPE / CODE NAME / CODE REACTION SEVERITY SOURCE 07/08/2018 Drug No Known Unknown [place] [facility] Allergy/4160 Allergies/F00 Hospital 30638(SNOMED 9654859(RXNOR Repository CT) M) ENCOUNTERS ENCOUNTERS ADMIT/DISCHARGE ACCOUNT ADMITTING ENCOUNTER LOCATION SOURCE NUMBER CLASS 07/08/2018/ [id number] Ambulatory BMSBuilding:B [place] 9 2 [facility] Repository 06/23/2018 [id number] Ambulatory BMSBuilding:B Bob 7 MS.[facility] Repository 06/19/2018 [id number] Ambulatory [place] Bob 7 [facility] ing:US Repository 06/16/2018/ [id number] Ambulatory BMSBuilding:B [place] 8 2 [facility] Repository 06/10/2018 [id number] Ambulatory Bob [place] 4 [facility] ing:OPUS Repository 06/05/2018 [id number] Ambulatory Bob [place] 7 [facility] Hospital ing:OPBI Repository 06/02/2018 [id number] Ambulatory [place] 6 [facility] Hospital ing:MFPLAB Repository 03/18/2018 [id number] Ambulatory [place] Bob 6 [facility] Hospital ing:EMPH Repository 02/19/2018 [id number] Ambulatory Bob [place] 2 [facility] Hospital ing:ED Repository 09/09/2017 [id number] Ambulatory Bob [place] 5 [facility] ing:MTLAB Repository 09/08/2017/ [id number] Emergency Bob Bob 8 8 [facility] Hospital ing:ED Repository PAYERS PAYERS ENCOUNTER GUARANTOR PAYER SUBSCRIBER SOURCE 07/08/2018 RADHA [id number] Primary Insurance:[facility] RADHA Todd RETTIGDOB: Bob E [address] [facility] [id number] [address]Giy: (803) Number: Repository [phone] HP) [id number] Date:5488-55-32CT [address], [place] [address]AP: CHECK WEBSITE 07/08/2018 Secondary NOT GIVENUNK Bob Insurance:SELF PAY [facility] Number: Effective Repository Date:2018-06-20 06/23/2018 RADHA Todd [id number] Primary NOT GIVENUNK [place] E [address] Insurance:SELF PAY [facility] [address]Orr: (803) Number: Effective Repository [phone] () Date:2018-06-23 06/19/2018 RADHA Todd [id number] Primary Insurance:[facility] RADHA Todd RETTIGDOB: Bob E [address] [facility] [id number] Hospital [address]Neo: (803) Number: Repository [phone] () [id number] Date:6799-45-84GX [address] [address], [place] [address]HH: CHECK WEBSITE 06/19/2018 Secondary NOT GIVENUNK Bob Insurance:SELF PAY [facility] Number: Effective Repository Date:2018-06-16 06/16/2018 RADHA Todd [id number] Primary Insurance:[facility] RADHA Todd RETTIGDOB: Bob E [address] [facility] [id number] Hospital [address]Sqf: (803) Number: Repository [phone] () [id number] Date:3914-28-60[address] [address], [place] [address]XL: CHECK WEBSITE 06/16/2018 Secondary NOT GIVENUNK [place] Insurance:SELF PAY [facility] Number: Effective Repository Date:2018-06-13 06/10/2018 REYES Primary Insurance:[facility] RADHA Todd RETTIGDOB: [place] [id number] [facility] [id number] Number: Repository [phone]: 330 [id number] [phone] () Date:5799-27-50LI [address] [address], [place] [address]TI: CHECK WEBSITE 06/10/2018 Secondary NOT GIVENUNK [place] Insurance:SELF PAY [facility] Number: Effective Repository Date:2018-06-06 06/05/2018 REYES Primary Insurance:[facility] RADHA J RETTIGDOB: [place] [id number] [facility] [id number] Number: Repository [phone]: 330 [id number] [phone] () Date:3082-54-29[address] [address], [place] [address]DR: CHECK WEBSITE 06/05/2018 Secondary NOT GIVENUNK Bob Insurance:SELF PAY [facility] Number: Effective Repository Date:2018-04-22 06/02/2018 Reyes Primary Insurance:[facility] RADHA Todd RETTIGDOB: [place] [id number] [facility] [id number] Number: Repository [id number]: 330 [id number] [phone] () Date:1867-36-82NA [address] [address], [place] [address]ND: CHECK WEBSITE 06/02/2018 Secondary NOT GIVENUNK [place] Insurance:SELF PAY [facility] Number: Effective Repository Date:2018-06-02 03/18/2018 Reyes Primary NOT GIVENUNK Bob [id number] Insurance:SELF PAY [place] Number: Effective Repository [id number]: (330) Date:2018-03-18 [phone] () 02/19/2018 Reyes Primary NOT GIVENUNK Bob [id number] Insurance:SELF PAY [place] Number: Effective Repository [id number]: (330) Date:2018-02-19 [phone] () 09/09/2017 Reyes Primary Insurance:[facility] RADHA Todd RETTIGDOB: Bob [id number] [facility] [id number], [place] Number: Repository [phone]: 330 [id number] [phone] () Date:7222-53-22NA [address] [address], [place] [address]WN: CHECK WEBSITE 09/09/2017 Secondary NOT GIVENUNK [place] Insurance:SELF PAY [facility] Number: Effective Repository Date:2017-09-09 09/08/2017 RADHA Todd [id number] Primary Insurance:[facility] RADHA Todd RETTIGDOB: Bob E [address] [facility] [id number] [facility] [address]Ucq: (803) Number: Repository [phone] HP) [id number] Date:5873-91-11ST [address] [address]FK[place]MP[place]JK, [place] [address]ML: CHECK WEBSITE 09/08/2017 Secondary NOT GIVENUNK Bob Insurance:SELF PAY [facility] Number: Effective Repository Date:2017-09-08
[2019-08-13 13:41] VITALS: BMI 33.3
== END ==
PROVIDERS: Family Provider Family Medicine; PCP Family Medicine; Visit Provider Family Medicine
DX: R92.8 Other abnormal and inconclusive findings on diagnostic imaging of breast (principal)
CPT/HCPCS: 76642

== ENCOUNTER → 2018-06-19 14:59 | Outpatient (CLI) | payer OTHER, SELFPAY ==
[2018-06-16 07:28] VITALS: BMI 30.2
--- NOTE | 2018-06-19 | BRBX_PTH ---
PATIENT: RADHA MCGRATH LOC: [facility]#:[id number] AGE/SX: 50/F ROOM: RE06/19/[address]: Dr. Charly Do MD : [id number] BED: DIS: SPEC #: [id number] RECD: 06/20/18 14:28 STATUS: MARGARETH NIKITA #: [id number] ZBIGNIEW: 06/19/18 00:[address]: Charly Do DEPT: SURGICAL PATHOLOGY RECD BY: Jt Alvarado ENTERED: 06/20/18 14:29 SP TYPE: BREAST BX OTHR DR: Dr. Osorio Ochoa MD Tissues: A - Left breast, NOS B - Left breast, NOS Procedures: Surgery Specimen Level IV HEADER OPERATION: Left breast ultrasound-guided biopsy PRE-OP DIAGNOSIS: Left breast lesions 1 o'clock 2 cm, 2 o'clock 10 cm TISSUE SUBMITTED: A - Left breast nodule 2 o'clock, 10 cm from nipple, B - Left breast nodule 1 o'clock, 3 cm from nipple ISCHEMIC TIME: 1 minute MICROSCOPIC DIAGNOSIS A. Left breast at 2 o'clock, ultrasound-guided core biopsy: Fibroadenomatous change and mild duct ectasia. No evidence of malignancy. B. Left breast at 1 o'clock, ultrasound-guided core biopsy: Fibroadenoma. AM:rhiannon 06/23/18 MICROSCOPIC DESCRIPTION Slides are reviewed. GROSS DESCRIPTION A - Received in fixative is one container labeled with the patient's name and designated left breast 2 o'clock. The specimen consists of multiple irregular fragments of yellow soft tissue that in aggregate measure 2.5 x 1.2 x 0.1 cm. The specimen is totally submitted in one cassette. B - Received in fixative is one container labeled with the patient's name and designated left breast 1 o'clock. The specimen consists of multiple irregular fragments of yellow soft tissue that in aggregate measure 2 x 1.5 x 0.1 cm. The specimen is totally submitted in one cassette. / AM:rhiannon 06/20/18 TC:5 CPT: 88411 x2
--- NOTE | 2018-06-19 15:01 | US_ITS ---
STUDY: ULTRASOUND GUIDED BIOPSY OF THE BREAST LEFT REASON FOR EXAM: Female, 43 years old. Hypoechoic nodule at the 2:00 position of the left breast at 30 cm from the nipple. TECHNIQUE: Under direct sonographic guidance, the surgeon performed core needle biopsies of the hypoechoic nodule at the 2:00 position breast at 10 sinus and nipple. COMPARISON: Comparison is made with prior sonogram dated June 10, 2018 and prior mammogram dated June 05, 2018. FINDINGS: Successful ultrasound-guided core biopsy of the nodule at the 2:00 position breast at the sinus of the nipple. IMPRESSION: Successful ultrasound-guided core biopsy. Electronically Signed: Fady Grimes MD at 8:30 EST Tel [phone], Service support , ULTRASOUND GUIDED CORE BIOPSY REASON FOR EXAM: Female, 43 years old. Hypoechoic solid nodule at the 1:00 position of the breast at 3 cm nipple. PERTINENT HISTORY: Non-contributory. COMPARISON: None. TECHNIQUE: (All elements of maximal sterile barrier technique followed, including US elements as applicable) Upon arrival to the breast imaging department the patient's identification was confirmed and the LEFT breast was marked according to time-out protocol. Ultrasound guided core biopsy and clip placement, to include potential risks and complications, was explained in full to the patient. Written and verbal consent were obtained prior to initiation of the procedure. The LEFT breast was prepped and draped in standard sterile fashion and local anesthesia was obtained with 1% buffered lidocaine. A small dermatotomy was then made to introduce the core biopsy needle. Under ultrasound guidance multiple core samples were obtained with a 11 gauge needle and submitted in formalin for pathology. A titanium clip was then deployed into the biopsy cavity under ultrasound guidance. Upon completion of the procedure hemostasis was obtained and sterile dressing was applied. The patient tolerated the entire procedure without immediate complication and was discharged from the breast imaging department in good condition. US/US Breast Biopsy 1st Lesion IMPRESSION: Ultrasound guided core biopsy of a mass in the LEFT breast at the 1:00 position breast at 3 cm from the nipple without complication. An addendum to this report will be rendered with appropriate recommendations when the pathology report is finalized. Electronically Signed: Fady Grimes MD at 8:31 EST Tel [phone], Service support ,
--- NOTE | 2018-06-19 15:40 | US_ITS ---
STUDY: ULTRASOUND GUIDED BIOPSY OF THE BREAST LEFT REASON FOR EXAM: Female, 43 years old. Hypoechoic nodule at the 2:00 position of the left breast at 30 cm from the nipple. TECHNIQUE: Under direct sonographic guidance, the surgeon performed core needle biopsies of the hypoechoic nodule at the 2:00 position breast at 10 sinus and nipple. COMPARISON: Comparison is made with prior sonogram dated June 10, 2018 and prior mammogram dated June 05, 2018. FINDINGS: Successful ultrasound-guided core biopsy of the nodule at the 2:00 position breast at the sinus of the nipple. IMPRESSION: Successful ultrasound-guided core biopsy. Electronically Signed: Fady Grimes MD at 8:30 EST Tel [phone], Service support , ULTRASOUND GUIDED CORE BIOPSY REASON FOR EXAM: Female, 43 years old. Hypoechoic solid nodule at the 1:00 position of the breast at 3 cm nipple. PERTINENT HISTORY: Non-contributory. COMPARISON: None. TECHNIQUE: (All elements of maximal sterile barrier technique followed, including US elements as applicable) Upon arrival to the breast imaging department the patient's identification was confirmed and the LEFT breast was marked according to time-out protocol. Ultrasound guided core biopsy and clip placement, to include potential risks and complications, was explained in full to the patient. Written and verbal consent were obtained prior to initiation of the procedure. The LEFT breast was prepped and draped in standard sterile fashion and local anesthesia was obtained with 1% buffered lidocaine. A small dermatotomy was then made to introduce the core biopsy needle. Under ultrasound guidance multiple core samples were obtained with a 11 gauge needle and submitted in formalin for pathology. A titanium clip was then deployed into the biopsy cavity under ultrasound guidance. Upon completion of the procedure hemostasis was obtained and sterile dressing was applied. The patient tolerated the entire procedure without immediate complication and was discharged from the breast imaging department in good condition. US/US Breast Bx EA Add Lesion IMPRESSION: Ultrasound guided core biopsy of a mass in the LEFT breast at the 1:00 position breast at 3 cm from the nipple without complication. An addendum to this report will be rendered with appropriate recommendations when the pathology report is finalized. Electronically Signed: Fady Grimes MD at 8:31 EST Tel [phone], Service support ,
--- NOTE | 2018-06-23 11:17 | PCM.OPRPT ---
Problem List (1) Abnormal mammogram Status: Acute Report of Operation Date of Procedure: 06/19/18 Pre-Operative Diagnosis: Abnormal mammogram to left breast Post-Operative Diagnosis: Same Surgery/Procedure Performed:: Ultrasound-guided handheld mammotome breast biopsy of left breast x2 Type of Anesthesia:: Local Specimen's removed: Left breast biopsy x2 Estimated Blood Loss (mL): < 25 cc Description of Procedure: Patient was brought into the ultrasound unit. Ultrasound of the upper outer quadrant of the left breast revealed the lesion in question. I prepped the breast with chlorhexidine. I injected 1% lidocaine plain. Under ultrasound guidance I injected local posterior to the lesion. A skin lonnie was made. Under ultrasound guidance I directed the hand-held mammotome needle posterior to the lesion under ultrasound guidance numerous biopsies were obtained. Under ultrasound guidance a titanium clip was placed. Closer to the nipple area was the second lesion which was identified with ultrasound. I prepped the breast with chlorhexidine. I injected 1% lidocaine plain. I injected local posterior to the lesion under ultrasound guidance. A skin lonnie was made. Under ultrasound guidance I directed the hand-held mammotome needle posterior to the lesion. Under ultrasound guidance numerous biopsies were obtained. Under ultrasound guidance a small titanium clip was placed. Sterile dressings were applied. The patient tolerated the procedure well. - Admit VTE Documentation VTE Present on Admission: No VTE Mechan Device Prophylaxis: None VTE Pharm Prophylaxis ordered?: No Reason prophylaxis not ordered:: Treatment Not Indicated
== END ==
PROVIDERS: Family Provider Family Medicine; PCP Family Medicine; Referring Provider Surgery; Visit Provider Surgery
DX: R92.8 Other abnormal and inconclusive findings on diagnostic imaging of breast (principal)
CPT/HCPCS: 19083; 19084; 88305

== ENCOUNTER → 2019-07-15 12:51 | Outpatient (CLI) | payer OTHER, SELFPAY ==
[2019-07-15 11:12] VITALS: BMI 30.2
[2019-07-17 13:28] LABS: HPV APTIMA, High Risk Negative (Negative)
== END ==
PROVIDERS: PCP Family Medicine; Referring Provider Nurse Practitioner Women's Health; Visit Provider Nurse Practitioner Women's Health
DX: Z12.4 Encounter for screening for malignant neoplasm of cervix (principal)
CPT/HCPCS: 87624; 88175; G0145

== ENCOUNTER → 2019-07-21 08:36 | Outpatient (CLI) | payer OTHER, SELFPAY ==
[2019-07-15 11:12] VITALS: BMI 30.2
--- NOTE | 2019-07-21 08:37 | BI_ITS ---
MAMMOGRAPHY - BILATERAL SCREENING REASON FOR EXAM: Female, 44 years old. Routine annual screening examination. PERTINENT HISTORY: Non-contributory. Prior left ultrasound-guided breast biopsies. TECHNIQUE: Digital bilateral breast joe (3D mammographic acquisition) in the CC and MLO projections. 2-D mediolateral oblique (MLO) and craniocaudad (CC) views of both breasts were obtained. CAD: Full Field Digital Mammography with Computer Added Detection was performed. COMPARISON: Comparison is made with prior examination dated June 05, 2018. FINDINGS: Breast Composition: There are scattered areas of fibroglandular density. There are no dominant masses or suspicious calcifications. Stable benign-appearing bilateral axillary lymph nodes. A tissue clip marker is seen in the upper central portion of the left breast within the tiny nodule. Need tissue clip marker is also seen in the upper lateral portion of the left breast. No other significant abnormalities are identified. There has been no significant change since the prior study. BI/SCREEN MAMM (CAD) W/JOE BILAT IMPRESSION: Stable bilateral screening mammogram. Yearly follow-up mammogram recommended. (A) ASSESSMENT CATEGORY: BIRADS Category 2: Benign. A letter regarding these results will be sent to the patient by the facility within 30 days. Approximately 10% of breast cancers are not detected by mammography. A normal mammogram should not delay biopsy of a clinically suspicious abnormality. [id number] Electronically Signed: Fady Grimes, at 9:37 EST , Service support ,
--- NOTE | 2019-07-21 08:37 | US_ITS ---
STUDY: ULTRASOUND OF THE FEMALE PELVIS - COMPLETE REASON FOR EXAM: Female, 44 years old. ABNORMAL BLEEDING LMP: July 19, 2019. TECHNIQUE: Transabdominal and Transvaginal TECHNICAL QUALITY: Adequate. COMPARISON: None. FINDINGS: The uterus is anteverted and is in a midline position. The uterus measures 8.8 cm x 5.7 cm x 5.4 cm. Normal uterine cervix. The endometrium measures 6.8 mm in thickness, and is hypoechoic. There is no demonstrated endometrial mass. There is no demonstrated myometrial mass. I.U.D. - The patient does not have an I.U.D. The right ovary is visualized. The right ovary measures 2.2 cm x 0.4 centimeters x 1.4 cm. There is a 1.1 cm x 1.1 cm x 0.8 cm dominant follicle in the left ovary. There is no visualized right adnexal mass or complex lesion. There is normal arterial and normal venous vascularity. The left ovary is non-visualized. There is no fluid in the cul-de-sac. The pre void volume of the bladder was 77 ml. Polycystic ovary disease: No. US/Pelvic (Non ) IMPRESSION: Dominant follicle in the left ovary. Electronically Signed: Fady Grimes, at 15:54 EST , Service support ,
== END ==
LOC: OPBI 08:37
PROVIDERS: PCP Family Medicine; Referring Provider Nurse Practitioner Women's Health; Visit Provider Nurse Practitioner Women's Health
DX: Z12.31 Encounter for screening mammogram for malignant neoplasm of breast (principal); N92.1 Excessive and frequent menstruation with irregular cycle
CPT/HCPCS: 76856; 77063; 77067

== ENCOUNTER → 2019-07-27 12:42 | Outpatient (CLI) | payer OTHER, SELFPAY ==
[2019-07-27 11:04] VITALS: BMI 30.2
--- NOTE | 2019-07-27 11:30 | EMB_PTH ---
PATIENT: RADHA MCGRATH LOC: [facility] U#:[id number] AGE/SX: 50/F ROOM: RE07/27/[address]: DARREN Maya : 1975 BED: DIS: SPEC #: [id number] RECD: 07/27/19 12:42 STATUS: MARGARETH NIKITA #: [id number] ZBIGNIEW: 07/27/19 11:[address]: Loretta Ochoa NP DEPT: SURGICAL PATHOLOGY RECD BY: Landon Hall ENTERED: 07/27/19 13:38 SP TYPE: ENDOM BX/C LUISITO DR: Dr. Osorio Ochoa MD Tissues: Endometrium, NOS Procedures: Surgery Specimen Level IV HEADER OPERATION: Endometrial biopsy PRE-OP DIAGNOSIS: Abnormal uterine bleeding TISSUE SUBMITTED: Endometrial lining MICROSCOPIC DIAGNOSIS Endometrial biopsy: Proliferative endometrium. SJ:rhiannon 07/28/19 MICROSCOPIC DESCRIPTION Slides are reviewed. GROSS DESCRIPTION Received is one container labeled with the patient's name and not further designated. The specimen consists of multiple fragments of hemorrhagic soft tissue that in aggregate measure 3 x 2.5 x 0.3 cm. The specimen is totally submitted in one cassette. / SJ:rhiannon 07/27/19 TC:4 CPT: 81901
== END ==
PROVIDERS: PCP Family Medicine; Referring Provider Nurse Practitioner Women's Health; Visit Provider Nurse Practitioner Women's Health
DX: N93.9 Abnormal uterine and vaginal bleeding, unspecified (principal)
CPT/HCPCS: 88305

== ENCOUNTER → 2020-03-22 18:20 | Outpatient (CLI) | payer OTHER, SELFPAY ==
[2019-08-13 13:41] VITALS: BMI 33.3
--- NOTE | 2020-03-22 18:39 | US_ITS ---
STUDY: ULTRASOUND OF THE FEMALE PELVIS - COMPLETE REASON FOR EXAM: Female, 44 years old. RLQ PAIN LMP: 02/23/2020. TECHNIQUE: Transabdominal and Transvaginal TECHNICAL QUALITY: Adequate. COMPARISON: Comparison is made with prior examination dated 07/21/2019. FINDINGS: The uterus is anteverted and is in a midline position. The uterus measures 9.3 cm x 6.1 cm x 5.3 cm. Normal uterine cervix. The endometrium measures 7.0 mm in thickness, and is hyperechoic. There is no demonstrated endometrial mass. There is a 1.2 cm x 1.1 cm x 0.8 cm fundal fibroid. I.U.D. - The patient does have an I.U.D. The right ovary is visualized. The right ovary measures 3.9 cm x 3 cm x 2.4 cm. There is a 2.8 cm x 2.6 x 1.9 cm right ovarian cyst. There is no visualized right adnexal mass or complex lesion. There is normal arterial and normal venous vascularity. The left ovary is visualized. The left ovary measures 2.8 cm x 1.7 cm x 1.7 cm. There is no left ovarian cyst or ovarian mass. There is no visualized left adnexal mass or complex lesion. There is normal arterial and normal venous vascularity. There is no fluid in the cul-de-sac. The pre void volume of the bladder was 237 ml. Polycystic ovary disease: No. US/Pelvic (Non ) IMPRESSION: Small uterine fibroid measuring 1.2 cm x 1.1 cm x 0.8 cm 2.8 cm x 2.6 cm x 1.9 cm right ovarian cyst. Electronically Signed: Fady Grimes, at 13:33 EDT , Service support ,
--- NOTE | 2020-03-22 18:52 | US_ITS ---
STUDY: ULTRASOUND OF THE FEMALE PELVIS - COMPLETE REASON FOR EXAM: Female, 44 years old. RLQ PAIN LMP: 02/23/2020. TECHNIQUE: Transabdominal and Transvaginal TECHNICAL QUALITY: Adequate. COMPARISON: Comparison is made with prior examination dated 07/21/2019. FINDINGS: The uterus is anteverted and is in a midline position. The uterus measures 9.3 cm x 6.1 cm x 5.3 cm. Normal uterine cervix. The endometrium measures 7.0 mm in thickness, and is hyperechoic. There is no demonstrated endometrial mass. There is a 1.2 cm x 1.1 cm x 0.8 cm fundal fibroid. I.U.D. - The patient does have an I.U.D. The right ovary is visualized. The right ovary measures 3.9 cm x 3 cm x 2.4 cm. There is a 2.8 cm x 2.6 x 1.9 cm right ovarian cyst. There is no visualized right adnexal mass or complex lesion. There is normal arterial and normal venous vascularity. The left ovary is visualized. The left ovary measures 2.8 cm x 1.7 cm x 1.7 cm. There is no left ovarian cyst or ovarian mass. There is no visualized left adnexal mass or complex lesion. There is normal arterial and normal venous vascularity. There is no fluid in the cul-de-sac. The pre void volume of the bladder was 237 ml. Polycystic ovary disease: No. US/Transvaginal Non- IMPRESSION: Small uterine fibroid measuring 1.2 cm x 1.1 cm x 0.8 cm 2.8 cm x 2.6 cm x 1.9 cm right ovarian cyst. Electronically Signed: Fady Grimes, at 13:33 EDT , Service support ,
== END ==
PROVIDERS: PCP Family Medicine; Referring Provider Nurse Practitioner Women's Health; Visit Provider Nurse Practitioner Women's Health
DX: R10.31 Right lower quadrant pain (principal); N83.201 Unspecified ovarian cyst, right side; D25.9 Leiomyoma of uterus, unspecified
CPT/HCPCS: 76830; 76856; 93976

== ENCOUNTER 2020-04-22 07:06 | Emergency (ER) | payer OTHER, SELFPAY ==
[2019-08-13 13:41] VITALS: BMI 33.3
[2020-04-22 07:07] VITALS: BP 150/102; PULSE 96; RESP 17; TEMP 36.4; O2SAT 98; BMI 32.3
--- NOTE | 2020-04-22 07:24 | ED.VIS.GEN ---
History of Present Illness Chief Complaint: Burn Informant: Patient Onset: Yesterday Context: Sudden Onset Timing: Continuous Quality: Burning red sensation right breast Location: Right breast Current Severity: Mild Maximum Severity: Moderate Worsened by: Chemical burn Relieved by: Nothing Associated Symptoms: No constitutional symptoms Narrative: Patient is a 45-year-old woman who accidentally spilled noemí Garrett on her work type yesterday. She removed her work comp. She was unaware that the by Gerry got on her bra. When she went home she noted redness. The redness has gotten worse. She applied Neosporin ointment and dressing to the area. She denies fever, chills night sweats. Denies rheumatic fever, SBE, IV drug use or being immune suppressed. She is not diabetic. Prior similar symptoms: No Recent Illness/Hospitalization: No - Past Medical History (1) Hypertension Status: Chronic Past Medical History - Allergies and Home Meds Allergies/Adverse Reactions: Allergies No Known Allergies Allergy (Verified 04/22/20 07:06) Primary Care Physician: Jitendra Ochoa MD [Primary Care Provider] - Prior records reviewed: Yes Surgical History: noncontributory Lives: Spouse/ Significant Other, With Family Smoking Status: Never smoker Drugs: None Review of Systems General: Denies: Chills, Fever, Malaise, Subjective, Sweats Cardiovascular: Reports: Chest pain. Denies: Palpitations, Heart racing Respiratory: Denies: Dyspnea, Cough, Paroxysmal nocturnal dyspnea Gastrointestinal: Denies: Vomiting Musculoskeletal: Denies: Myalgias, Arthralgias Skin: Reports: Rash, Wounds. Denies: Abscess, Abrasions Hematologic: Denies: Easy bruising, Easy bleeding Allergy: Denies: Uticaria Physical Exam Vital Signs/Narrative: Vital Signs Temp Pulse Resp BP Pulse Ox 04/22/20 07:07 97.6 F L 96 17 150/102 H 98 Inital Vital Signs reviewed: Yes General: Well nourished, Well developed, Obese Head: Normocephalic, Atraumatic Eyes: Perrl, EOMI. Negative for: Pale conjunctiva, Scleral icterus Cardiovascular: Regular rate, Regular rhythm Respiratory: No distress Skin: Normal color, Rash - Patient has chemical burn with secondary infection and pustules. There is lymphangitis. There is no axillary lymphadenopathy. The area was demarcated with skin marking pen. Neurological: Alert, Oriented x3, Cranial nerves II-XII grossly intact, Normal Strength, Normal Sensation Psychological: Normal affect, Normal Mood Diagnostic/Tx/Re-eval - Medical Decision Making Patient has a chemical burn which has become infected. Since patient has no allergies to antibiotics she was placed on cephalexin and Bactrim. She received her first dose in the emergency department. She will need a wound check in 2 days. Since she has no constitutional symptoms and does not have a history of diabetes labs were not obtained. ED Disposition - Plan for ED Patient: Disposition: Home or Assisted Living Diagnosis: Partial thickness chemical burn of chest wall, Cellulitis of right breast, Lymphangitis of chest wall, Pustular rash Instructions: ED BURN Chemical, ED Cellulitis Prescriptions: Smz/Tmp Ds [Bactrim Ds] 1 tab PO BID #14 tab Transmission Status: Pending to [facility] Cephalexin [Keflex] 500 mg PO Q6 #28 cap Transmission Status: Pending to [facility] Referrals: Jitendra Ochoa MD [Primary Care Provider] - [facility] [GROUP OF PHYSICIANS] - 2 Days for wound check
[2020-04-22] MEDS: Smz/Tmp Ds Tablet 1 TABLET PO (07:39)
[2020-04-22] MEDS: Cephalexin 250 MG Capsule 500 MG PO (07:39)
== END 2020-04-22 07:45 | disposition home or self-care (01) ==
LOC: ED 07:41
PROVIDERS: Emergency Provider Emergency Medicine; PCP Family Medicine
DX: T65.891A Toxic effect of other specified substances, accidental (unintentional), initial encounter (principal); T21.41XA Corrosion of unspecified degree of chest wall, initial encounter; N61.0 Mastitis without abscess; L08.0 Pyoderma; L08.9 Local infection of the skin and subcutaneous tissue, unspecified; I89.1 Lymphangitis; Y93.9 Activity, unspecified; Y92.9 Unspecified place or not applicable; Y99.0 Civilian activity done for income or pay; I10 Essential (primary) hypertension; E66.9 Obesity, unspecified; Z79.899 Other long term (current) drug therapy
CPT/HCPCS: 99281

== ENCOUNTER → 2020-07-29 16:00 | Outpatient (CLI) | payer OTHER, SELFPAY ==
[2020-07-18 13:01] VITALS: BMI 35.2
--- NOTE | 2020-07-29 16:02 | BI_ITS ---
MAMMOGRAPHY - BILATERAL SCREENING REASON FOR EXAM: Female, 45 years old. Routine annual screening examination. PERTINENT HISTORY: Non-contributory. History of prior left ultrasound-guided breast biopsy. TECHNIQUE: Digital bilateral breast joe (3D mammographic acquisition) in the CC and MLO projections. 2-D mediolateral oblique (MLO) and craniocaudad (CC) views of both breasts were obtained. CAD: Full Field Digital Mammography with Computer Added Detection was performed. COMPARISON: Comparison is made with prior examination dated 07/21/2019 and 06/05/2018. FINDINGS: Breast Composition: There are scattered areas of fibroglandular density. There are no dominant masses or suspicious calcifications. A tissue clip marker is once again seen in the upper lateral aspect of the left breast. Stable 6.2 mm well-defined nodule in the axillary region of the left breast. Stable benign-appearing bilateral axillary lymph nodes. No other significant abnormalities are identified. There has been no significant change since the prior study. BI/SCRN MAMM (CAD)W/JOE BILAT IMPRESSION: Stable bilateral screening mammogram. Yearly follow-up mammogram recommended. (A) ASSESSMENT CATEGORY: BIRADS Category 2: Benign. A letter regarding these results will be sent to the patient by the facility within 30 days. Approximately 10% of breast cancers are not detected by mammography. A normal mammogram should not delay biopsy of a clinically suspicious abnormality. [id number] Electronically Signed: Fady Grimes MD at 8:16 EST , Service support ,
== END ==
PROVIDERS: PCP Family Medicine; Referring Provider Obstetrics & Gynecology; Visit Provider Obstetrics & Gynecology
DX: Z12.31 Encounter for screening mammogram for malignant neoplasm of breast (principal)
CPT/HCPCS: 77063; 77067

== ENCOUNTER 2020-09-13 04:52 | Emergency (ER) | payer OTHER, SELFPAY ==
[2020-07-18 13:01] VITALS: BMI 35.2
[2020-09-13 04:53] VITALS: BP 154/104; PULSE 91; RESP 16; TEMP 36.6; O2SAT 99; BMI 34.3
--- NOTE | 2020-09-13 05:28 | ED.DCSUM_ITS ---
History of Present Illness Chief Complaint: Back Informant: Patient Narrative: Stated for the last 2 weeks she has had lower back pain. It is midline lower and left-sided lower. Sharp stabbing pain at times. Is movement related. Bending twisting and standing up seem to make it worse. She cannot find a position of comfort. She has been using intermittent ibuprofen with mild relief of symptoms. Denies any urinary symptoms. Denies any pain in her upper back where her kidneys lie denies any flank pain. She has been dealing with constipation as well and did do a laxative and had a large bowel movement yesterday. She had some bloating and cramping after taking the laxative but that subsided. Her pain today is in her low back. No injury. No previous back problems. 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 - Past Medical History (1) Abnormal mammogram Status: Acute (2) Hx of breast biopsy Status: Acute Comment: Left breast- 06/19/2018 (3) Hx of section Status: Acute Comment: 2000, 2006, and 2007 (4) Menorrhagia with irregular cycle Status: Acute Comment: Normal US, EMB. IUD inserted 08/13/19 (5) Hypertension Status: Chronic Past Medical History - Allergies and Home Meds Allergies/Adverse Reactions: Allergies No Known Allergies Allergy (Verified 09/13/20 04:56) Primary Care Physician: Jitendra Ochoa MD [Primary Care Provider] - Prior records reviewed: Yes Past Medical History: - - See problem list Surgical History: noncontributory Smoking Status: Current every day smoker Alcohol: None Drugs: None Review of Systems General: Denies: Chills, Fever, Sweats Eyes: Denies: Visual changes - bilaterally, Diplopia ENT: Denies: Rhinorrhea, Sore throat Cardiovascular: Denies: Chest pain, Palpitations Respiratory: Denies: Dyspnea, Cough, Dyspnea on exertion Gastrointestinal: Denies: Abdominal pain, Nausea, Vomiting, Diarrhea, Melena, Hematochezia Genitourinary: Denies: Dysuria, Hematuria, Frequency Musculoskeletal: Reports: Back pain. Denies: Extremity Pain Skin: Denies: Rash, Wounds Neurological: Denies: Headache, Weakness, Numbness Physical Exam Vital Signs/Narrative: Vital Signs Temp Pulse Resp BP Pulse Ox 09/13/20 04:53 98 F 91 16 154/104 H 99 General: Well nourished, Well developed, No Acute Distress Head: Normocephalic, Atraumatic Eyes: Perrl, EOMI ENT: Moist mucous membranes, No rhinorrhea Neck: Supple, Nontender Cardiovascular: Regular rate, Regular rhythm, No murmurs Respiratory: No distress, CTA bilaterally, Chest nontender Abdomen: Soft, Nontender, Nondistended, Normal bowel sounds Back: Normal Inspection, - - Tender in the lower lumbar spine and left lower lumbar paracervicals. Decreased range of motion all gramajo secondary to pain in her low back. Extremities: Nontender, No edema Skin: Normal color, No rash Neurological: Alert, Oriented x3, Cranial nerves II-XII grossly intact, Normal Strength, Normal Sensation Psychological: Normal affect, Normal Mood Diagnostic/Tx/Re-eval - Medical Decision Making At this time I feel this is musculoskeletal. It is quite reproducible. It is midline and left paralumbar. There is no swelling or deformity. There is no tenderness over the kidney. I do not think she has a kidney stone. I did discuss work-up for kidney stone with the patient and we decided to hold off at this time as this does not sound like a kidney stone. Patient was given injection of Toradol. She will rest and ice and do Mobic. She will follow-up as an outpatient. She will add MiraLAX to her diet to help her become more regular. I did offer her an enema however she just recently had a large bowel movement and would like to hold off. ED Disposition - Plan for ED Patient: Disposition: Home or Assisted Living Diagnosis: Back pain, lumbosacral Instructions: ED Pain, Acute, Uncertain Cause Prescriptions: Meloxicam [Mobic] 15 mg PO DAILY #14 tablet Transmission Status: Pending to [facility] Referrals: Jitendra Ochoa MD [Primary Care Provider] -
[2020-09-13] MEDS: Ketorolac 30 MG/ML Syringe IM (05:34)
== END 2020-09-13 05:45 | disposition home or self-care (01) ==
PROVIDERS: Emergency Provider Emergency Medicine; PCP Family Medicine
DX: M54.5 Low back pain (principal); I10 Essential (primary) hypertension; F17.200 Nicotine dependence, unspecified, uncomplicated; Z79.1 Long term (current) use of non-steroidal anti-inflammatories (NSAID); Z79.899 Other long term (current) drug therapy
CPT/HCPCS: 96372; 99282

== ENCOUNTER → 2020-09-14 09:39 | Outpatient (CLI) | payer OTHER, SELFPAY ==
[2020-09-13 04:53] VITALS: BMI 34.3
--- NOTE | 2020-09-14 09:41 | RAD_ITS ---
STUDY: X-RAY - THORACIC SPINE REASON FOR EXAM: Female, 45 years old. Pain TECHNIQUE: 3 view(s) of the thoracic spine were obtained. COMPARISON: None. FINDINGS: There is no evidence of fracture or dislocation in the thoracic spine. The vertebral body heights are well-maintained. There are very mild degenerative changes with disc space narrowing and small osteophytes. There are disc calcifications noted at T11/T12. RAD/Thoracic Spine 3 Views IMPRESSION: No fracture or dislocation in the thoracic spine. Mild degenerative changes. Electronically Signed: Bernabe Carlisle MD at 17:05 EDT Tel , Service support ,
--- NOTE | 2020-09-14 09:41 | RAD_ITS ---
STUDY: X-RAY - LUMBOSACRAL SPINE REASON FOR EXAM: Female, 45 years old. Pain TECHNIQUE: 6 view(s) of the lumbosacral spine were obtained. COMPARISON: None FINDINGS: There is no evidence of fracture or dislocation in the lumbosacral spine. The vertebral body heights and disc spaces are well-maintained. There are no significant degenerative changes. There is no evidence of subluxation on flexion or extension. RAD/L/S Spine Comp/w Bending Views IMPRESSION: Negative radiographs of the lumbosacral spine. Electronically Signed: Bernabe Carlisle MD at 17:12 EDT Tel , Service support ,
== END ==
PROVIDERS: PCP Family Medicine; Referring Provider Family Medicine; Visit Provider Family Medicine
DX: S29.019A Strain of muscle and tendon of unspecified wall of thorax, initial encounter (principal); X58.XXXA Exposure to other specified factors, initial encounter; Y93.9 Activity, unspecified; Y92.9 Unspecified place or not applicable; Y99.9 Unspecified external cause status
CPT/HCPCS: 72072; 72114

== ENCOUNTER 2021-07-13 08:45 | Outpatient (RCR) | payer OTHER, SELFPAY | END 2021-07-24 23:59 | LOC: EMPH 08:45 | PROVIDERS: PCP Family Medicine; Visit Provider Family Medicine Geriatric Medicine | DX: U07.1 COVID-19 (principal) | CPT/HCPCS: 87426 ==

== ENCOUNTER 2021-07-14 18:11 | Outpatient (CLI) | payer OTHER, SELFPAY ==
[2021-07-14 18:19] VITALS: BP 144/98; PULSE 87; RESP 16; TEMP 36.6; O2SAT 98; BMI 32.3
[2021-07-14] MEDS: 0.9% Saline Lock 10 ML Syringe IV (18:22)
[2021-07-14 18:54] VITALS: BP 122/84; PULSE 77; RESP 16; TEMP 36.9; O2SAT 97
[2021-07-14 19:47] VITALS: BP 131/82; PULSE 71; RESP 16; TEMP 36.9; O2SAT 98
== END 2021-07-14 23:59 | disposition home or self-care (01) ==
LOC: MS3OUT 18:12 → MS3 18:12
PROVIDERS: PCP Family Medicine; Referring Provider Nurse Practitioner Adult Health; Visit Provider Nurse Practitioner Adult Health
DX: U07.1 COVID-19 (principal)
CPT/HCPCS: J7050; M0245; Q0245; A4216

== ENCOUNTER → 2021-10-16 | Outpatient (CLI) | payer OTHER, SELFPAY ==
--- NOTE | 2021-10-16 13:04 | BI_ITS ---
MAMMOGRAPHY - BILATERAL SCREENING 3-D TOMOSYNTHESIS REASON FOR EXAM: Female, 46 years old. breast cancer screening PERTINENT HISTORY: No significant family history. TECHNIQUE: 2-D mammograms and 3-D Tomosynthesis of the breast (s) were performed. CAD was performed. COMPARISON: 07/29/2020 FINDINGS: The breast composition is composed of scattered fibroglandular density. Scattered benign calcifications are seen. No dense spiculated masses or suspicious microcalcifications are identified. No architectural distortion is identified. There is no skin thickening or retraction. There has been no significant change since the prior study. BI/SCRN MAMM (CAD)W/JOE BILAT IMPRESSION: No mammographic signs of malignancy. Routine yearly mammograms recommended. ASSESSMENT CATEGORY: BIRADS Category 1: Negative. A letter regarding these results will be sent to the patient by the facility within 30 days. FOLLOW UP RECOMMENDATION: Yearly follow up mammogram recommended. (A) Approximately 10% of breast cancers are not detected by mammography. A normal mammogram should not delay biopsy of a clinically suspicious abnormality. Electronically Signed: Jt Lloyd MD at 14:26 EDT ,
== END | disposition home or self-care (01) ==
LOC: OPBI 12:59
PROVIDERS: PCP Family Medicine; Referring Provider Nurse Practitioner Women's Health; Visit Provider Nurse Practitioner Women's Health
DX: Z12.31 Encounter for screening mammogram for malignant neoplasm of breast (principal)
CPT/HCPCS: 77063; 77067

== ENCOUNTER → 2023-01-07 | Outpatient (CLI) | payer OTHER, SELFPAY ==
--- NOTE | 2023-01-07 13:15 | BI_ITS ---
MAMMOGRAPHY - BILATERAL SCREENING 3-D TOMOSYNTHESIS REASON FOR EXAM: Female, 47 years old. Routine screening PERTINENT HISTORY: No significant family history. TECHNIQUE: 2-D mammograms and 3-D Tomosynthesis of the breast (s) were performed. CAD was performed. COMPARISON: 07/29/2020 FINDINGS: The breast composition is composed of scattered fibroglandular density. Scattered benign calcifications are seen. No dense spiculated masses or suspicious microcalcifications are identified. No architectural distortion is identified. There is no skin thickening or retraction. Stable bilateral 1 cm nodules in the upper-outer quadrants of both breasts. No change since previous studies BI/SCRN MAMM (CAD)W/JOE BILAT IMPRESSION: No mammographic signs of malignancy. Routine yearly mammograms recommended. ASSESSMENT CATEGORY: BIRADS Category 2: Benign. A letter regarding these results will be sent to the patient by the facility within 30 days. FOLLOW UP RECOMMENDATION: Yearly follow up mammogram recommended. (A) Approximately 10% of breast cancers are not detected by mammography. A normal mammogram should not delay biopsy of a clinically suspicious abnormality. Electronically Signed: Rigoberto Elder MD at 14:56 EDT ,
== END | disposition home or self-care (01) ==
LOC: OPBI 13:14
PROVIDERS: PCP Family Medicine; Referring Provider Nurse Practitioner Women's Health; Visit Provider Nurse Practitioner Women's Health
DX: Z12.31 Encounter for screening mammogram for malignant neoplasm of breast (principal)
CPT/HCPCS: 77063; 77067

== ENCOUNTER → 2023-03-05 | Outpatient (CLI) | payer OTHER, SELFPAY ==
[2023-03-05 09:04] LABS: Erythrocyte Sedimentation Rate 10 mm/hr (0-30)
[2023-03-05 09:38] LABS: Free T3 2.8 pg/mL (2.18-3.98); T4 Free Direct 1.02 ng/dL (0.76-1.46); Thyroid Stim Hormone (TSH) 2.54 uIU/mL (0.358-3.74)
[2023-03-06 12:09] LABS: ANTINUCLEAR ANTIBODIES DIRECT Negative (Negative)
== END | disposition home or self-care (01) ==
LOC: LAB 07:55
PROVIDERS: PCP Family Medicine; Referring Provider Family Medicine; Visit Provider Family Medicine
DX: R21 Rash and other nonspecific skin eruption (principal); Z83.49 Family history of other endocrine, nutritional and metabolic diseases
CPT/HCPCS: 84439; 84443; 84481; 85652; 86038

== ENCOUNTER → 2024-07-29 | Outpatient (CLI) | payer OTHER, SELFPAY ==
--- NOTE | 2024-07-29 13:42 | BI_ITS ---
PROCEDURE: SCRN MAMM (CAD)W/JOE BILAT REASON FOR EXAM: F, Age 49 y/o , No family history. Routine follow-up. TECHNIQUE: Bilateral screening digital breast tomosynthesis with 2D and 3D images. Computer aided detection. COMPARISON: Prior exam(s) dating back to . Comparison is made with prior examination dated January 07, 2023. FINDINGS: There are scattered areas of fibroglandular density. Stable examination. Stable benign-appearing axillary lymph node in the right axilla. No suspicious masses, areas of developing architectural distortion, or suspicious calcifications. BI/SCRN MAMM (CAD)W/JOE BILAT IMPRESSION: BI-RADS 2: BENIGN. RECOMMEND ANNUAL MAMMOGRAPHIC SCREENING. Follow-up code: Routine Follow-up The patient will be notified of the results by letter. Reading Location: [place] [id number]
== END | disposition home or self-care (01) ==
LOC: OPBI 13:41
PROVIDERS: PCP Family Medicine; Referring Provider Nurse Practitioner Women's Health; Visit Provider Nurse Practitioner Women's Health
DX: Z12.31 Encounter for screening mammogram for malignant neoplasm of breast (principal)
CPT/HCPCS: 77063; 77067

== ENCOUNTER → 2024-08-06 | Outpatient (CLI) | payer OTHER, SELFPAY ==
--- NOTE | 2024-08-06 15:19 | US_ITS ---
EXAM: EXT NON VASC LIMITED/SOFT TISS CLINICAL HISTORY: Possible Resendiz cyst. Posterior knee pain. COMPARISON: None. TECHNIQUE: Imaging of the left popliteal fossa was obtained. No evidence of Resendiz's cyst. FINDINGS: No sonographic abnormality is seen. US/Ext Non Vasc Limited/Soft Tiss IMPRESSION: No sonographic abnormality is seen. Reading Location: [id number]
== END | disposition home or self-care (01) ==
LOC: US 15:19
PROVIDERS: PCP Family Medicine; Referring Provider Family Medicine; Visit Provider Family Medicine
DX: M25.562 Pain in left knee (principal)
CPT/HCPCS: 76882

== ENCOUNTER → 2024-08-11 | Outpatient (CLI) | payer OTHER, SELFPAY ==
--- NOTE | 2024-08-11 15:45 | RAD_ITS ---
PROCEDURE: KNEE 3 VIEWS REASON FOR EXAM: Pain and swelling in the left knee. TECHNIQUE: AP, lateral, tunnel, sunrise view(s) of the left knee COMPARISON: None. FINDINGS: No fracture. No suspicious bone lesion. Normal alignment. Small suprapatellar effusion. Soft tissues are unremarkable. Mild joint space narrowing with subchondral sclerosis in the medial compartment. RAD/Knee 3 Views IMPRESSION: MILD MEDIAL COMPARTMENT ARTHROSIS. SMALL SUPRAPATELLAR EFFUSION. Reading Location: [id number]
== END | disposition home or self-care (01) ==
LOC: RAD 15:41
PROVIDERS: PCP Family Medicine; Referring Provider Family Medicine; Visit Provider Family Medicine
DX: M25.562 Pain in left knee (principal)
CPT/HCPCS: 73562

== ENCOUNTER → 2024-09-16 | Outpatient (CLI) | payer OTHER, SELFPAY | END | disposition home or self-care (01) | LOC: LABSPEC 16:40 | PROVIDERS: PCP Family Medicine; Referring Provider Nurse Practitioner Women's Health; Visit Provider Nurse Practitioner Women's Health | DX: Z12.4 Encounter for screening for malignant neoplasm of cervix (principal) | CPT/HCPCS: 87624; 88175; G0145 ==

== ENCOUNTER → 2024-10-12 | Outpatient (CLI) | payer OTHER, SELFPAY ==
--- NOTE | 2024-10-12 18:38 | MRI_ITS ---
CLINICAL HISTORY: pain COMPARISON: none TECHNIQUE: Multiplanar multisequential MRI of the left knee joint was performed without IV contrast administration. Images were sent through PACs for diagnostic interpretation. FINDINGS: Focal cortical irregularity and subcortical low signal lines of the medial femoral and tibial condyles with related extensive marrow edema. High T2 WI signal of the patellar articular cartilage with no underlying marrow edema. The body and posterior horn of the medial meniscus show complex high PD FS WI signal interrupting the meniscal articular surfaces with medial meniscal extrusion. Intact lateral meniscus. Intact anterior and posterior cruciate ligaments. The medial l collateral ligament is seen encased by edema. The lateral collateral ligament is intact. The patellar tendon shows high signal with no fibers interruption. Intact retinacular ligaments. Mild knee joint effusion with mild synovial hypertrophy. No marrow infiltrative lesions. The popliteus tendon shows high signal. Normal MR appearance of the rest of the wily-articular musculature with preserved inter-muscular fat planes. Subcutaneous soft tissue edema of the anteromedial aspect of the knee with dilated varicosities along its posterolateral aspect. MRI/Lower Ext Joint Only (Routine) IMPRESSION: Medial femoral and tibial condyles trabecular injuries with micro-trabecular/in sufficiency fractures. Grade I patellar chondromalacia. Torn body and posterior horn of the medial meniscus. Grade I injury of the medial collateral ligament. Mild knee joint effusion. Subcutaneous soft tissue edema of the anteromedial aspect of the knee with dila master varicosities along its posterolateral aspect. Reading [facility]
== END | disposition home or self-care (01) ==
LOC: MRI 15:17
PROVIDERS: PCP Family Medicine; Referring Provider Family Medicine; Visit Provider Family Medicine
DX: M25.562 Pain in left knee (principal)
CPT/HCPCS: 73721